=== PATIENT | male | born 1945 | race Caucasian/White ===

== ENCOUNTER 2019-05-15 08:06 | Inpatient (IN) | payer OTHER ==
[2019-05-15] MEDS ORDERED: Heparin 25,000 units/D5W 0 ML ONE (08:27)
[2019-05-15] MEDS ORDERED: Heparin 1,000 UNITS/ML VIAL ONE ×2 (08:27→08:32)
--- NOTE | 2019-05-15 08:28 | RAD ---
Chest one view HISTORY: Chest pain. FINDINGS: No comparison. Cardiac silhouette is magnified by projection. Pulmonary vasculature is slig htly engorged but with mild reticulonodular interstitial prominence. Patient is rotated rightward mild patchy bibasilar infiltrate.. No lobar consolidation or evidence of pneumothorax. IMPRESSION: Mild pulmonary vascular congestion.
[2019-05-15 08:36] LABS: #Basophils 0.1 thou/uL (0.0-0.2); #Eosinphils 0.5 thou/uL (0.0-0.7); #Lymphocytes 1.6 thou/uL (1.20-3.40); #Monocytes 0.6 thou/uL (0.11-0.59); #Neutrophils 3.8 thou/uL (1.40-6.50); %Eosinophils 7.7 % (0.0-10.0); %Monocytes 9.1 % (0.0-10.0); %Neutrophils 58.2 % (42.0-75.0); Hemoglobin 14.3 g/dL (14.0-18.0); INR-International Normal Ratio 1.1; Mean Corpuscular Hemoglobin 32.4 pg (27.0-31.0); Mean Corpuscular Volume 98.1 fL (78.0-98.0); Mean Platelet Volume 8.7 fL (7.4-10.4); PTT 30.2 SEC (22.9-36.1); Platelet Count 109 thou/uL (130-400); Prothrombin Time 14.1 SEC (12.0-14.7); RBC Distribution Width 11.6 % (11.5-14.5); Red Blood Cell (RBC) Count 4.42 mill/uL (4.70-6.10); White Blood Cell (WBC) Count 6.5 thou/uL (4.8-10.8)
[2019-05-15 08:49] LABS: Platelet Morphology Comment Appears Decreased; RBC Morphology Normal
[2019-05-15 08:50] LABS: ALT (SGPT) 66 U/L (8-55); AST (SGOT) 49 U/L (5-34); Albumin 3.5 g/dL (3.4-4.8); Alkaline Phosphatase 99 U/L (40-150); Anion Gap 12 mmol/L (10-20); BUN (Urea Nitrogen) 12 mg/dL (8.4-25.7); Bilirubin, Total 0.7 mg/dL (0.2-1.2); CK (CPK) 69 U/L (30-200); Calc. Creatinine Clearance 0 mL/min (70-130); Calcium 9.2 mg/dL (7.8-10.44); Carbon Dioxide 23 mmol/L (23-31); Chloride 105 mmol/L (98-107); Estimated GFR-MDRD 86; Globulin 3.4 g/dL (2.4-3.5); Glucose 161 mg/dL (83-110); Lipase 22 U/L (8-78); Potassium 3.7 mmol/L (3.5-5.1); Protein, Total 6.9 g/dL (5.8-8.1); Sodium 136 mmol/L (136-145)
[2019-05-15] MEDS ORDERED: Bivalirudin 250 MG VIAL ONE (09:00)
[2019-05-15] MEDS ORDERED: Heparin 10,000 UNITS/1 ML VIAL ONE (09:00)
[2019-05-15] MEDS ORDERED: DOPamine 400 MG/D5W 250 ML 0 ML ONE (09:04)
[2019-05-15] MEDS ORDERED: Ipratropium Oral Inhaler (200 INHALATIONS) INH PRN (09:37)
[2019-05-15] MEDS ORDERED: Clopidogrel Bisulfate 300 MG TAB ONE (09:39)
[2019-05-15] MEDS ORDERED: Nitroglycerin 0.4 MG TAB (25 Tab Bottle) SL PRN (09:41)
[2019-05-15] MEDS ORDERED: Morphine 2 MG/ML SYRINGE SLOW IVP PRN (09:41)
[2019-05-15 10:28] LABS: Cardiac Risk 3.5 (Less than 4.5)
[2019-05-15] MEDS: Sodium Chloride 0.9% 1,000 ML IV SCH ×2 (10:30→15:15)
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
[2019-05-15] MEDS ORDERED: Dextrose 50% Abboject 50 ML SYRINGE SLOW IVP PRN (12:17)
[2019-05-15] MEDS ORDERED: Dextrose 5% in Water 1,000 ML IV PRN (12:17)
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
[2019-05-15] MEDS ORDERED: Iopamidol 370 76% 100 ML VIAL ONE (13:14)
[2019-05-15 14:39] LABS: CKMB 286.2 ng/mL (0-6.6)
[2019-05-15 14:51] LABS: Troponin I 108.944 ng/mL (< 0.028)
[2019-05-15] MEDS ORDERED: Sodium Chloride 0.9% 1,000 ML IV SCH (15:11)
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
[2019-05-15] MEDS ORDERED: Furosemide 40 MG TAB PO SCH (18:15)
[2019-05-15] MEDS: Furosemide 40 MG TAB PO SCH (18:40)
[2019-05-15] MEDS: Carvedilol 25 MG TAB PO SCH (18:43)
[2019-05-15] MEDS: Mometasone 100 MCG HFA INHALER INH SCH (20:19)
[2019-05-15] MEDS: Terazosin HCl 5 MG CAP PO SCH (21:24)
[2019-05-15] MEDS: Pravastatin Sodium 40 MG TAB PO SCH (21:24)
[2019-05-15] MEDS: HumaLOG 300 UNITS/3 ML VIAL SC PRN (21:34)
[2019-05-15 21:50] LABS: CKMB 273.5 ng/mL (0-6.6); Critical Call CKMB RESULT DECREASING
[2019-05-15] MEDS: Acetaminophen 325 MG TAB PO PRN (23:05)
[2019-05-16] MEDS ORDERED: Atropine Sulfate 1 mg/10 ml Syringe ONE (00:04)
[2019-05-16 03:35] LABS: #Basophils 0.1 thou/uL (0.0-0.2); #Eosinphils 0.3 thou/uL (0.0-0.7); #Lymphocytes 1.6 thou/uL (1.20-3.40); #Monocytes 0.6 thou/uL (0.11-0.59); #Neutrophils 4.5 thou/uL (1.40-6.50); %Basophils 0.8 % (0.0-1.0); %Eosinophils 4.3 % (0.0-10.0); %Lymphocytes 22.7 % (21.0-51.0); %Neutrophils 64.2 % (42.0-75.0); Hemoglobin 13.7 g/dL (14.0-18.0); Mean Corpuscular HGB CONC 33.7 g/dL (32.0-36.0); Mean Corpuscular Hemoglobin 33.3 pg (27.0-31.0); Mean Corpuscular Volume 98.7 fL (78.0-98.0); Mean Platelet Volume 8.8 fL (7.4-10.4); Platelet Count 91 thou/uL (130-400); RBC Distribution Width 11.8 % (11.5-14.5); Red Blood Cell (RBC) Count 4.11 mill/uL (4.70-6.10)
[2019-05-16 03:50] LABS: ALT (SGPT) 91 U/L (8-55); AST (SGOT) 207 U/L (5-34); Albumin 3.1 g/dL (3.4-4.8); Alkaline Phosphatase 91 U/L (40-150); Anion Gap 14 mmol/L (10-20); BUN (Urea Nitrogen) 10 mg/dL (8.4-25.7); Bilirubin, Total 0.7 mg/dL (0.2-1.2); Calc. Creatinine Clearance 122 mL/min (70-130); Calcium 8.4 mg/dL (7.8-10.44); Carbon Dioxide 19 mmol/L (23-31); Chloride 107 mmol/L (98-107); Estimated GFR-MDRD Greater than 90; Globulin 2.8 g/dL (2.4-3.5); Glucose 83 mg/dL (83-110); Potassium 3.6 mmol/L (3.5-5.1); Protein, Total 5.9 g/dL (5.8-8.1); Sodium 136 mmol/L (136-145)
[2019-05-16 04:17] LABS: Critical Call Chem Troponin I RESULT DECREASING
[2019-05-16 04:36] LABS: CKMB 173.2 ng/mL (0-6.6); Critical Call CKMB RESULT DECREASING
[2019-05-16] MEDS: Levothyroxine 150 MCG TAB PO SCH (06:19)
[2019-05-16] MEDS: Mometasone 100 MCG HFA INHALER INH SCH ×2 (06:42→18:25)
[2019-05-16] MEDS ORDERED: Potassium Chloride 20 MEQ TAB PO SCH (09:00)
[2019-05-16] MEDS: Carvedilol 25 MG TAB PO SCH ×2 (09:42→17:28)
[2019-05-16] MEDS: Clopidogrel Bisulfate 75 MG TAB PO SCH (09:42)
[2019-05-16] MEDS: Furosemide 40 MG TAB PO SCH ×2 (09:42→15:25)
[2019-05-16] MEDS: Aspirin Chewable 81 MG TAB PO SCH (09:42)
--- NOTE | 2019-05-16 10:57 | PRG ---
DATE OF SERVICE: 05/16/2019 SERVICE: Pulmonary Medicine. INTERVAL HISTORY: The patient is doing really well from respiratory standpoint. He is breathing comfortably. He has no complaints of chest pain, fevers, or chills. Overnight, he had a couple of brief runs of ventricular tachycardia, which were short-lived. He was asymptomatic to them. That becoming much less frequent. PHYSICAL EXAMINATION: VITAL SIGNS: Afebrile, pulse 72, blood pressure 118/79, respirations 15, and saturation 97% on room air. GENERAL: The patient is awake and alert, in no apparent distress. LUNGS: Very good air entry. There is a prolonged expiratory phase. No wheezing is present today. HEART: Normal rate, regular. ABDOMEN: Soft, nontender, and nondistended. Bowel sounds are positive. MUSCULOSKELETAL: No cyanosis or clubbing. No pitting in the bilateral lower extremities. NEUROLOGIC: Grossly nonfocal. LABORATORY DATA: WBC 7.0, hemoglobin 13.7, and platelets 91,000. Troponin is downtrending to 144. BNP 822. Basic metabolic profile is otherwise unremarkable. AST and ALT are gently up-trending. ASSESSMENT: 1. Acute ST-elevation myocardial infarction, status post percutaneous coronary intervention to left anterior descending with a drug-eluting stent. 2. Chronic obstructive pulmonary disease without current exacerbation. 3. Nonsustained ventricular tachycardia, immediately following revascularization. DISCUSSION AND PLAN: The patient is doing fine from respiratory standpoint. At this point, he is stable for transition out of the ICU to the telemetry unit. When he arrives there, he will have no further requirements for inpatient Pulmonary/Critical Care opinion, and I will sign off. Please call with additional questions or concerns through time. I will provide him one dose of Lasix today. Job ID: [id number]
[2019-05-16] MEDS: Lisinopril 2.5 MG TAB PO SCH ×2 (11:04→22:00)
[2019-05-16] MEDS: HumaLOG 300 UNITS/3 ML VIAL SC PRN (11:09)
--- NOTE | 2019-05-16 11:20 | EKG ---
Test Reason : CP Blood Pressure : / mmHG Vent. Rate : 060 BPM Atrial Rate : 060 BPM P-R Int : 164 ms QRS Dur : 084 ms QT Int : 432 ms P-R-T Axes : 066 -06 -03 degrees QTc Int : 432 ms Normal sinus rhythm Anterior infarct , possibly acute * ACUTE [place] * Abnormal ECG Confirmed by LETTY JONES DO ([id number]), slot editor FREDERIC WILLIAM ([id number]) on 05/16/2019 11:20:30 AM Referred By: ROBERT Confirmed By:LETTY JONES DO
--- NOTE | 2019-05-16 14:41 | PDOC.PN ---
- Subjective Encounter Start Date: 05/16/19 Encounter Start Time: 13:45 Subjective: no sob or chest pain -: feels good, is eating well - Objective MAR Reviewed: Yes Vital Signs & Weight: Vital Signs (12 hours) Temp Pulse Pulse Pulse Resp BP BP 05/16/19 11:42 87 88 116/65 05/16/19 11:04 69 119/89 05/16/19 08:00 05/16/19 06:40 69 20 05/16/19 04:00 97.8 F BP Pulse Ox Pulse Ox Pulse Ox 05/16/19 11:42 148/82 H 96 96 05/16/19 11:04 05/16/19 08:00 95 05/16/19 06:40 94 L 05/16/19 04:00 Weight Admit Weight 203 lb Weight 203 lb 14.841 oz Most Recent Monitor Data Heart Rate from ECG 81 NIBP 104/70 NIBP BP-Mean 81 Respiration from ECG 16 SpO2 96 I&O: 05/15/19 05/16/19 05/17/19 06:59 06:59 06:59 Intake Total 1797 600 Output Total 1875 100 Balance -78 500 Result Diagrams: 05/16/19 03:22 05/16/19 03:22 Additional Labs: Accuchecks 05/15/19 05/15/19 21:28 17:10 POC Glucose 199 H 156 H Phys Exam - Physical Examination HEENT: PERRLA, moist MMs Neck: no JVD, supple Respiratory: no wheezing, no rales Cardiovascular: RRR, no significant murmur Gastrointestinal: soft, non-tender, positive bowel sounds Musculoskeletal: no edema, pulses present Neurological: non-focal, moves all 4 limbs Psychiatric: normal affect, A&O x 3 Dx/Plan (1) Acute [place], anterior wall Code(s): I21.09 - STEMI INVOLVING OTH CORONARY ARTERY OF ANTERIOR WALL Status : Acute Comment: s/p stent to prox/mid LAD 05/15/19 (2) CAD (coronary artery disease) Code(s): I25.10 - ATHSCL HEART DISEASE OF [place] CORONARY ARTERY W/O ANG PCTRS Status: Acute Qualifiers: Coronary Disease-Associated Artery/Lesion type: [place] artery [place] vs. transplanted heart: [place] heart Associated angina: without angina Qualified Code(s): I25.10 - Atherosclerotic heart disease of [place] coronary artery without angina pectoris (3) COPD (chronic obstructive pulmonary disease) Status: Chronic Qualifiers: COPD type: unspecified COPD Qualified Code(s): J44.9 - Chronic obstructive pulmonary disease, unspecified (4) HTN (hypertension) Code(s): I10 - ESSENTIAL (PRIMARY) HYPERTENSION Status: Chronic Qualifiers: Hypertension type: essential hypertension Qualified Code(s): I10 - Essential (primary) hypertension (5) Dyslipidemia Code(s): E78.5 - HYPERLIPIDEMIA, UNSPECIFIED Status: Chronic (6) Hypothyroidism Code(s): E03.9 - HYPOTHYROIDISM, UNSPECIFIED Status: Chronic Qualifiers: Hypothyroidism type: unspecified Qualified Code(s): E03.9 - Hypothyroidism , unspecified (7) H/O prostate cancer Code(s): Z85.46 - PERSONAL HISTORY OF MALIGNANT NEOPLASM OF PROSTATE Status: Chronic - Plan hemostable -: on asp, plavix, pravachol, coreg, lasix, lisinopril, synthroid, hytrin -: tx to tele -: likely dc plan in am to senior care if ok with cardio -: to amb in room as tolerated * . Review of Systems - Medications/Allergies Allergies/Adverse Reactions: Allergies Allergy/AdvReac Type Severity Reaction Status Date / Time minoxidil Allergy Verified 05/15/19 12:01 Medications: Current Medications Acetaminophen (Tylenol) 650 mg PO Q6H PRN PRN Reason: .HEADACHE Last Admin: 05/15/19 23:05 Dose: 650 mg Albuterol/Ipratropium (Duoneb) 3 ml NEB [id number] SCH Last Admin: 05/16/19 13:15 Dose: Not Given Albuterol/Ipratropium (Duoneb) 3 ml NEB Q6H PRN PRN Reason: SOB &/or Wheezing Aspirin (Aspirin Chewable) 81 mg PO DAILY [facility] Last Admin: 05/16/19 09:42 Dose: 81 mg Carvedilol (Coreg) 25 mg PO BID-[facility] Last Admin: 05/16/19 09:42 Dose: 25 mg Clopidogrel Bisulfate (Plavix) 75 mg PO DAILY [facility] Last Admin: 05/16/19 09:42 Dose: 75 mg Dextrose/Water (Dextrose 50%) 25 gm SLOW IVP PRN PRN PRN Reason: Hypoglycemia Furosemide (Lasix) 40 mg PO 0900,1400 [facility] Last Admin: 05/16/19 09:42 Dose: 40 mg Glucagon (Glucagon) 1 mg IM PRN PRN PRN Reason: Hypoglycemia Dextrose/Water (D5w) 1,000 mls @ 0 mls/hr IV .Q0M PRN PRN Reason: Hypoglycemia Insulin Human Lispro (Humalog) 0 units SC .MILD SLIDING SCALE PRN PRN Reason: Mild Correctional Scale Last Admin: 05/16/19 11:09 Dose: 2 unit Levothyroxine Sodium (Synthroid) 150 mcg PO 0600 [facility] Last Admin: 05/16/19 06:19 Dose: 150 mcg Lisinopril (Zestril) 2.5 mg PO BID [facility] Last Admin: 05/16/19 11:04 Dose: 2.5 mg Mometasone Furoate (Asmanex Hfa 100 Mcg) 1 puff INH BID-RT [facility] Last Admin: 05/16/19 06:42 Dose: 1 puff Morphine Sulfate (Morphine) 2 mg SLOW IVP Q4H PRN PRN Reason: Moderate Chest Pain (4-6) Last Admin: 05/16/19 04:30 Dose: 2 mg Nitroglycerin (Nitrostat) 0.4 mg SL Q5MIN PRN PRN Reason: Chest Pain Potassium Chloride (K-Dur) 20 meq PO QAM-[facility] Pravastatin Sodium (Pravachol) 40 mg PO HS [facility] Last Admin: 05/15/19 21:24 Dose: Not Given Terazosin HCl (Hytrin) 5 mg PO HS [facility] Last Admin: 05/15/19 21:24 Dose: 5 mg
[2019-05-16] MEDS: Acetaminophen 325 MG TAB PO PRN ×2 (15:28→21:27)
[2019-05-16] MEDS: Terazosin HCl 5 MG CAP PO SCH (21:19)
[2019-05-16] MEDS: Pravastatin Sodium 40 MG TAB PO SCH (21:19)
[2019-05-17 04:55] LABS: #Eosinphils 0.4 thou/uL (0.0-0.7); #Lymphocytes 1.9 thou/uL (1.20-3.40); #Monocytes 0.6 thou/uL (0.11-0.59); %Basophils 0.4 % (0.0-1.0); %Eosinophils 5.9 % (0.0-10.0); %Lymphocytes 27.4 % (21.0-51.0); %Monocytes 8.2 % (0.0-10.0); %Neutrophils 58.1 % (42.0-75.0); Hemoglobin 13.1 g/dL (14.0-18.0); Mean Corpuscular HGB CONC 33.6 g/dL (32.0-36.0); Mean Corpuscular Hemoglobin 32.9 pg (27.0-31.0); Mean Corpuscular Volume 97.7 fL (78.0-98.0); Mean Platelet Volume 8.7 fL (7.4-10.4); Platelet Count 98 thou/uL (130-400); RBC Distribution Width 11.7 % (11.5-14.5); Red Blood Cell (RBC) Count 3.97 mill/uL (4.70-6.10)
[2019-05-17 05:05] LABS: Anion Gap 12 mmol/L (10-20); BUN (Urea Nitrogen) 14 mg/dL (8.4-25.7); Calc. Creatinine Clearance 106 mL/min (70-130); Calcium 8.7 mg/dL (7.8-10.44); Carbon Dioxide 26 mmol/L (23-31); Chloride 104 mmol/L (98-107); Estimated GFR-MDRD Greater than 90; Glucose 111 mg/dL (83-110); Potassium 3.8 mmol/L (3.5-5.1); Sodium 138 mmol/L (136-145)
[2019-05-17] MEDS: Levothyroxine 150 MCG TAB PO SCH (05:18)
[2019-05-17] MEDS: Mometasone 100 MCG HFA INHALER INH SCH ×2 (06:40→19:18)
[2019-05-17] MEDS: Aspirin Chewable 81 MG TAB PO SCH (08:43)
[2019-05-17] MEDS: Carvedilol 25 MG TAB PO SCH ×2 (08:43→17:19)
[2019-05-17] MEDS: Clopidogrel Bisulfate 75 MG TAB PO SCH (08:43)
[2019-05-17] MEDS: Acetaminophen 325 MG TAB PO PRN ×2 (08:43→18:01)
[2019-05-17] MEDS: Furosemide 40 MG TAB PO SCH ×2 (08:43→14:21)
[2019-05-17] MEDS: Potassium Chloride 20 MEQ TAB PO SCH (08:44)
[2019-05-17] MEDS: Lisinopril 2.5 MG TAB PO SCH (08:44)
[2019-05-17] MEDS ORDERED: Amiodarone 450 MG in Dextrose 5% in Water 250 ML IVPB SCH (09:00)
[2019-05-17] MEDS ORDERED: Amiodarone 150 MG, Admixture Fee 1 EACH in Dextrose 5% in Water 100 ML IVPB SCH (09:15)
[2019-05-17] MEDS: HumaLOG 300 UNITS/3 ML VIAL SC PRN (11:56)
--- NOTE | 2019-05-17 12:43 | PDOC.PN ---
- Subjective Encounter Start Date: 05/17/19 Encounter Start Time: 10:30 Subjective: no chest pain or palp -: has mild sob this am and was found to have afib with rvr - Objective MAR Reviewed: Yes Vital Signs & Weight: Vital Signs (12 hours) Temp Pulse Resp BP BP Pulse Ox 05/17/19 12:06 96 16 95 05/17/19 07:05 98.2 F 85 18 157/83 H 98 05/17/19 06:46 75 20 98 05/17/19 06:40 84 16 93 L 05/17/19 03:25 99.7 F H 75 16 129/59 L 92 L 05/17/19 01:30 72 20 Weight Admit Weight 203 lb Weight 212 lb 4.882 oz Most Recent Monitor Data Heart Rate from ECG 71 NIBP 112/69 NIBP BP-Mean 83 Respiration from ECG 19 SpO2 95 I&O: 05/16/19 05/17/19 05/18/19 06:59 06:59 06:59 Intake Total 1797 2000 Output Total 1875 1200 Balance -78 800 Result Diagrams: 05/17/19 04:21 05/17/19 04:22 Additional Labs: Accuchecks 05/17/19 05/17/19 05/16/19 10:47 05:18 20:30 POC Glucose 166 H 105 148 H 05/16/19 05/16/19 05/16/19 17:17 11:10 06:12 POC Glucose 131 H 172 H 98 Phys Exam - Physical Examination HEENT: PERRLA, moist MMs Neck: no JVD, supple Respiratory: no wheezing, no rales Cardiovascular: no significant murmur, irregular Gastrointestinal: soft, non-tender, no distention, positive bowel sounds Musculoskeletal: no edema, pulses present Neurological: non-focal, moves all 4 limbs Psychiatric: normal affect, A&O x 3 Dx/Plan (1) New onset a-fib Code(s): I48.91 - UNSPECIFIED ATRIAL FIBRILLATION Status: Acute (2) Acute [place], anterior wall Code(s): I21.09 - STEMI INVOLVING OTH CORONARY ARTERY OF ANTERIOR WALL Status : Acute Comment: s/p stent to prox/mid LAD 05/15/19 (3) CAD (coronary artery disease) Code(s): I25.10 - ATHSCL HEART DISEASE OF [place] CORONARY ARTERY W/O ANG PCTRS Status: Acute Qualifiers: Coronary Disease-Associated Artery/Lesion type: [place] artery [place] vs. transplanted heart: [place] heart Associated angina: without angina Qualified Code(s): I25.10 - Atherosclerotic heart disease of [place] coronary artery without angina pectoris (4) COPD (chronic obstructive pulmonary disease) Status: Chronic Qualifiers: COPD type: unspecified COPD Qualified Code(s): J44.9 - Chronic obstructive pulmonary disease, unspecified (5) HTN (hypertension) Code(s): I10 - ESSENTIAL (PRIMARY) HYPERTENSION Status: Chronic Qualifiers: Hypertension type: essential hypertension Qualified Code(s): I10 - Essential (primary) hypertension (6) Dyslipidemia Code(s): E78.5 - HYPERLIPIDEMIA, UNSPECIFIED Status: Chronic (7) Hypothyroidism Code(s): E03.9 - HYPOTHYROIDISM, UNSPECIFIED Status: Chronic Qualifiers: Hypothyroidism type: unspecified Qualified Code(s): E03.9 - Hypothyroidism , unspecified (8) H/O prostate cancer Code(s): Z85.46 - PERSONAL HISTORY OF MALIGNANT NEOPLASM OF PROSTATE Status: Chronic - Plan has been started on amiodarone drip -: await echo results -: continue asp, plavix, coreg, lisinopril, lasix bid and pravachol -: hemostable * . Review of Systems - Medications/Allergies Allergies/Adverse Reactions: Allergies Allergy/AdvReac Type Severity Reaction Status Date / Time minoxidil Allergy Verified 05/15/19 12:01 Medications: Current Medications Acetaminophen (Tylenol) 650 mg PO Q6H PRN PRN Reason: .HEADACHE Last Admin: 05/17/19 08:43 Dose: 650 mg Albuterol/Ipratropium (Duoneb) 3 ml NEB [id number] SCH Last Admin: 05/17/19 12:06 Dose: 3 ml Albuterol/Ipratropium (Duoneb) 3 ml NEB Q6H PRN PRN Reason: SOB &/or Wheezing Aspirin (Aspirin Chewable) 81 mg PO DAILY [facility] Last Admin: 05/17/19 08:43 Dose: 81 mg Carvedilol (Coreg) 25 mg PO BID-[facility] Last Admin: 05/17/19 08:43 Dose: 25 mg Clopidogrel Bisulfate (Plavix) 75 mg PO DAILY [facility] Last Admin: 05/17/19 08:43 Dose: 75 mg Dextrose/Water (Dextrose 50%) 25 gm SLOW IVP PRN PRN PRN Reason: Hypoglycemia Furosemide (Lasix) 40 mg PO 0900,1400 [facility] Last Admin: 05/17/19 08:43 Dose: 40 mg Glucagon (Glucagon) 1 mg IM PRN PRN PRN Reason: Hypoglycemia Dextrose/Water (D5w) 1,000 mls @ 0 mls/hr IV .Q0M PRN PRN Reason: Hypoglycemia Amiodarone HCl 450 mg/ (Dextrose/Water) 259 mls @ 0 mls/hr IVPB INF AUGUSOT; Protocol Last Admin: 05/17/19 09:36 Dose: 259 mls Insulin Human Lispro (Humalog) 0 units SC .MILD SLIDING SCALE PRN PRN Reason: Mild Correctional Scale Last Admin: 05/17/19 11:56 Dose: 2 unit Levothyroxine Sodium (Synthroid) 150 mcg PO 0600 [facility] Last Admin: 05/17/19 05:18 Dose: 150 mcg Lisinopril (Zestril) 2.5 mg PO BID [facility] Last Admin: 05/17/19 08:44 Dose: 2.5 mg Mometasone Furoate (Asmanex Hfa 100 Mcg) 1 puff INH BID-RT [facility] Last Admin: 05/17/19 06:40 Dose: 1 puff Morphine Sulfate (Morphine) 2 mg SLOW IVP Q4H PRN PRN Reason: Moderate Chest Pain (4-6) Last Admin: 05/16/19 04:30 Dose: 2 mg Nitroglycerin (Nitrostat) 0.4 mg SL Q5MIN PRN PRN Reason: Chest Pain Potassium Chloride (K-Dur) 20 meq PO QAM-WM [facility] Last Admin: 05/17/19 08:44 Dose: 20 meq Pravastatin Sodium (Pravachol) 40 mg PO HS [facility] Last Admin: 05/16/19 21:19 Dose: 40 mg Terazosin HCl (Hytrin) 5 mg PO HS [facility] Last Admin: 05/16/19 21:19 Dose: 5 mg
[2019-05-17] MEDS: Terazosin HCl 5 MG CAP PO SCH (20:48)
[2019-05-17] MEDS: Pravastatin Sodium 40 MG TAB PO SCH (20:48)
[2019-05-17] MEDS: Lisinopril 10 MG TAB PO SCH (20:49)
[2019-05-17] MEDS: Amiodarone 200 MG TAB PO SCH (20:51)
[2019-05-17] MEDS ORDERED: Artificial Tear Sol 15 ML BOT EA EYE PRN (20:58)
[2019-05-18] MEDS: Levothyroxine 150 MCG TAB PO SCH (03:53)
[2019-05-18] MEDS: Acetaminophen 325 MG TAB PO PRN ×2 (03:53→19:05)
[2019-05-18] MEDS: Mometasone 100 MCG HFA INHALER INH SCH ×2 (07:27→19:31)
[2019-05-18 07:37] LABS: #Basophils 0.1 thou/uL (0.0-0.2); #Eosinphils 0.4 thou/uL (0.0-0.7); #Lymphocytes 2.2 thou/uL (1.20-3.40); #Monocytes 0.8 thou/uL (0.11-0.59); #Neutrophils 5.1 thou/uL (1.40-6.50); %Basophils 0.8 % (0.0-1.0); %Eosinophils 5.3 % (0.0-10.0); %Lymphocytes 25.4 % (21.0-51.0); %Neutrophils 59.5 % (42.0-75.0); Hemoglobin 13.1 g/dL (14.0-18.0); Mean Corpuscular HGB CONC 32.3 g/dL (32.0-36.0); Mean Corpuscular Hemoglobin 31.4 pg (27.0-31.0); Mean Platelet Volume 8.6 fL (7.4-10.4); Platelet Count 114 thou/uL (130-400); RBC Distribution Width 11.7 % (11.5-14.5); Red Blood Cell (RBC) Count 4.17 mill/uL (4.70-6.10); White Blood Cell (WBC) Count 8.5 thou/uL (4.8-10.8)
[2019-05-18 07:38] LABS: INR-International Normal Ratio 1.1; PTT 29.3 SEC (22.9-36.1); Prothrombin Time 14.1 SEC (12.0-14.7)
[2019-05-18 07:51] LABS: Anion Gap 12 mmol/L (10-20); BUN (Urea Nitrogen) 21 mg/dL (8.4-25.7); Calc. Creatinine Clearance 99 mL/min (70-130); Calcium 9.2 mg/dL (7.8-10.44); Carbon Dioxide 26 mmol/L (23-31); Chloride 104 mmol/L (98-107); Estimated GFR-MDRD 85; Glucose 114 mg/dL (83-110); Potassium 3.9 mmol/L (3.5-5.1); Sodium 138 mmol/L (136-145)
[2019-05-18] MEDS: Amiodarone 200 MG TAB PO SCH ×2 (09:13→21:44)
[2019-05-18] MEDS: Furosemide 40 MG TAB PO SCH ×2 (09:14→13:55)
[2019-05-18] MEDS: Lisinopril 10 MG TAB PO SCH ×2 (09:14→21:45)
[2019-05-18] MEDS: Aspirin Chewable 81 MG TAB PO SCH (09:14)
[2019-05-18] MEDS: Potassium Chloride 20 MEQ TAB PO SCH (09:14)
[2019-05-18] MEDS: Carvedilol 25 MG TAB PO SCH ×2 (09:14→16:40)
[2019-05-18] MEDS: Clopidogrel Bisulfate 75 MG TAB PO SCH (09:14)
--- NOTE | 2019-05-18 10:42 | PQF ---
CLINICAL DOCUMENTATION IMPROVEMENT CLARIFICATION FORM: ICD-10 Updated PLEASE DO AN ADDENDUM TO THE PROGRESS NOTE WITH ANY DOCUMENTATION UPDATES OR ADDITIONS AND CARRY THROUGH TO DC SUMMARY. THANK YOU. DATE: 05/18/19 ATTN: DR. ZIMMERMAN Please exercise your independent, professional judgment in responding to the clarification form. Clinical indicators are provided on the bottom of this form for your review Please check appropriate box(s): HEART FAILURE: A. TYPE: [ x ] Systolic / HFrEF [ ] Diastolic / HFpEF [ ] Combined Systolic / Diastolic B. ACUITY [ x ] Acute [ ] Acute on Chronic [ ] Chronic [ ] Other diagnosis [ ] Unable to determine In addition, please specify: Present on Admission (POA): [ x ] Yes [ ] No [ ] Unable to determine For continuity of documentation, please document condition throughout progress notes and discharge summary. Thank You. 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 All Rights Reserved SONG [email or web address] Office: [phone] TANESHA
[2019-05-18] MEDS: HumaLOG 300 UNITS/3 ML VIAL SC PRN (11:24)
--- NOTE | 2019-05-18 12:15 | PDOC.PN ---
- Subjective Encounter Start Date: 05/18/19 Encounter Start Time: 10:30 Subjective: no sob, feels better -: no chest pain or palp - Objective MAR Reviewed: Yes Vital Signs & Weight: Vital Signs (12 hours) Temp Pulse Pulse Pulse Resp BP BP 05/18/19 11:19 98.5 F 66 17 05/18/19 09:14 138/83 05/18/19 08:58 86 91 140/71 05/18/19 07:33 99.0 F 71 18 05/18/19 07:27 70 16 05/18/19 03:15 98.4 F 73 22 H BP BP BP Pulse Ox Pulse Ox Pulse Ox 05/18/19 11:19 117/63 93 L 05/18/19 09:14 05/18/19 08:58 136/75 94 L 97 05/18/19 07:33 122/61 95 05/18/19 07:27 05/18/19 03:15 114/53 L 93 L Weight Admit Weight 203 lb Weight 210 lb 5.136 oz Most Recent Monitor Data Heart Rate from ECG 71 NIBP 112/69 NIBP BP-Mean 83 Respiration from ECG 19 SpO2 95 I&O: 05/17/19 05/18/19 05/19/19 06:59 06:59 06:59 Intake Total 1999 1883.4 Output Total 1200 1650 Balance 800 233.4 Result Diagrams: 05/18/19 07:20 05/18/19 07:20 Additional Labs: Accuchecks 05/18/19 05/18/19 05/17/19 11:10 05:07 20:12 POC Glucose 173 H 121 H 129 H 05/17/19 17:13 POC Glucose 125 H Phys Exam - Physical Examination HEENT: PERRLA, moist MMs Neck: no JVD, supple Respiratory: no wheezing, no rales Cardiovascular: RRR, no significant murmur Gastrointestinal: soft, non-tender, positive bowel sounds Musculoskeletal: no edema, pulses present Neurological: non-focal, moves all 4 limbs Psychiatric: normal affect, A&O x 3 Dx/Plan (1) New onset a-fib Code(s): I48.91 - UNSPECIFIED ATRIAL FIBRILLATION Status: Acute Comment: in sinus now (2) Acute [place], anterior wall Code(s): I21.09 - STEMI INVOLVING [facility] CORONARY ARTERY OF ANTERIOR WALL Status : Acute Comment: s/p stent to prox/mid LAD 05/15/19 (3) CAD (coronary artery disease) Code(s): I25.10 - ATHSCL HEART DISEASE OF [place] CORONARY ARTERY W/O ANG PCTRS Status: Acute Qualifiers: Coronary Disease-Associated Artery/Lesion type: [place] artery [place] vs. transplanted heart: [place] heart Associated angina: without angina Qualified Code(s): I25.10 - Atherosclerotic heart disease of [place] coronary artery without angina pectoris (4) COPD (chronic obstructive pulmonary disease) Status: Chronic Qualifiers: COPD type: unspecified COPD Qualified Code(s): J44.9 - Chronic obstructive pulmonary disease, unspecified (5) HTN (hypertension) Code(s): I10 - ESSENTIAL (PRIMARY) HYPERTENSION Status: Chronic Qualifiers: Hypertension type: essential hypertension Qualified Code(s): I10 - Essential (primary) hypertension (6) Dyslipidemia Code(s): E78.5 - HYPERLIPIDEMIA, UNSPECIFIED Status: Chronic (7) Hypothyroidism Code(s): E03.9 - HYPOTHYROIDISM, UNSPECIFIED Status: Chronic Qualifiers: Hypothyroidism type: unspecified Qualified Code(s): E03.9 - Hypothyroidism , unspecified (8) H/O prostate cancer Code(s): Z85.46 - PERSONAL HISTORY OF MALIGNANT NEOPLASM OF PROSTATE Status: Chronic (9) Acute exacerbation of CHF (congestive heart failure) Code(s): I50.9 - HEART FAILURE, UNSPECIFIED Status: Acute Qualifiers: Heart failure type: systolic Qualified Code(s): I50.23 - Acute on chronic systolic (congestive) heart failure Comment: ef of 20%, class C - Plan hemostable -: is on oral amiodarone -: life vest per cardio adv -: continue asp, plavix, pravachol, coreg, lisinopril, lasix, synthroid, hytri -: dc plan per cardiology adv, pt to amb as tolerated in hallway * . Review of Systems - Medications/Allergies Allergies/Adverse Reactions: Allergies Allergy/AdvReac Type Severity Reaction Status Date / Time minoxidil Allergy Verified 05/15/19 12:01 Medications: Current Medications Acetaminophen (Tylenol) 650 mg PO Q6H PRN PRN Reason: .HEADACHE Last Admin: 05/18/19 03:53 Dose: 650 mg Albuterol/Ipratropium (Duoneb) 3 ml NEB [id number] Last Admin: 05/18/19 07:27 Dose: 3 ml Albuterol/Ipratropium (Duoneb) 3 ml NEB Q6H PRN PRN Reason: SOB &/or Wheezing Amiodarone HCl (Cordarone) 400 mg PO BID [facility] Last Admin: 05/18/19 09:13 Dose: 400 mg Artificial Tears (Liquitears 15ml Bottle) 2 drop EA EYE Q4H PRN PRN Reason: Dry Eyes Last Admin: 05/17/19 22:04 Dose: 2 drop Aspirin (Aspirin Chewable) 81 mg PO DAILY [facility] Last Admin: 05/18/19 09:14 Dose: 81 mg Carvedilol (Coreg) 25 mg PO BID-[facility] Last Admin: 05/18/19 09:14 Dose: 25 mg Clopidogrel Bisulfate (Plavix) 75 mg PO DAILY [facility] Last Admin: 05/18/19 09:14 Dose: 75 mg Dextrose/Water (Dextrose 50%) 25 gm SLOW IVP PRN PRN PRN Reason: Hypoglycemia Furosemide (Lasix) 40 mg PO 0900,1400 [facility] Last Admin: 05/18/19 09:14 Dose: 40 mg Glucagon (Glucagon) 1 mg IM PRN PRN PRN Reason: Hypoglycemia Dextrose/Water (D5w) 1,000 mls @ 0 mls/hr IV .Q0M PRN PRN Reason: Hypoglycemia Insulin Human Lispro (Humalog) 0 units SC .MILD SLIDING SCALE PRN PRN Reason: Mild Correctional Scale Last Admin: 05/18/19 11:24 Dose: 2 unit Levothyroxine Sodium (Synthroid) 150 mcg PO 0600 [facility] Last Admin: 05/18/19 03:53 Dose: 150 mcg Lisinopril (Zestril) 10 mg PO BID [facility] Last Admin: 05/18/19 09:14 Dose: 10 mg Mometasone Furoate (Asmanex Hfa 100 Mcg) 1 puff INH BID-RT [facility] Last Admin: 05/18/19 07:27 Dose: 1 puff Morphine Sulfate (Morphine) 2 mg SLOW IVP Q4H PRN PRN Reason: Moderate Chest Pain (4-6) Last Admin: 05/16/19 04:30 Dose: 2 mg Nitroglycerin (Nitrostat) 0.4 mg SL Q5MIN PRN PRN Reason: Chest Pain Potassium Chloride (K-Dur) 20 meq PO QAM-WM [facility] Last Admin: 05/18/19 09:14 Dose: 20 meq Pravastatin Sodium (Pravachol) 40 mg PO HS [facility] Last Admin: 05/17/19 20:48 Dose: 40 mg Sodium Chloride (Flush - Normal Saline) 10 ml IVF Q12HR [facility] Last Admin: 05/18/19 09:16 Dose: 10 ml Sodium Chloride (Flush - Normal Saline) 10 ml IVF PRN PRN PRN Reason: Saline Flush Terazosin HCl (Hytrin) 5 mg PO HS [facility] Last Admin: 05/17/19 20:48 Dose: 5 mg Warfarin Sodium (Coumadin) 5 mg PO 1700 [facility]
[2019-05-18] MEDS: Warfarin Sodium 5 MG TAB PO SCH (16:41)
[2019-05-18 19:04] LABS: Hemoglobin 12.6 g/dL (14.0-18.0); Platelet Count 113 thou/uL (130-400)
[2019-05-18] MEDS: Terazosin HCl 5 MG CAP PO SCH (21:44)
[2019-05-18] MEDS: Pravastatin Sodium 40 MG TAB PO SCH (21:44)
[2019-05-19] MEDS: Levothyroxine 150 MCG TAB PO SCH (06:19)
[2019-05-19] MEDS: Mometasone 100 MCG HFA INHALER INH SCH ×2 (07:20→18:19)
[2019-05-19 07:27] LABS: INR-International Normal Ratio 1.1; PTT 30.3 SEC (22.9-36.1); Prothrombin Time 14.4 SEC (12.0-14.7)
[2019-05-19] MEDS: Aspirin Chewable 81 MG TAB PO SCH (08:43)
[2019-05-19] MEDS: Clopidogrel Bisulfate 75 MG TAB PO SCH (08:43)
[2019-05-19] MEDS: Amiodarone 200 MG TAB PO SCH ×2 (08:43→20:41)
[2019-05-19] MEDS: Furosemide 40 MG TAB PO SCH ×2 (08:43→14:58)
[2019-05-19] MEDS: Potassium Chloride 20 MEQ TAB PO SCH (08:44)
[2019-05-19] MEDS: Lisinopril 10 MG TAB PO SCH ×2 (08:44→20:40)
[2019-05-19] MEDS: Carvedilol 25 MG TAB PO SCH ×2 (08:44→16:21)
[2019-05-19 09:15] LABS: INR-International Normal Ratio 1.1; Prothrombin Time 14.3 SEC (12.0-14.7)
--- NOTE | 2019-05-19 11:29 | PDOC.PN ---
- Subjective Encounter Start Date: 05/19/19 Encounter Start Time: 09:40 Subjective: no chest pain or sob or palp -: wants to take a shower today - Objective MAR Reviewed: Yes Vital Signs & Weight: Vital Signs (12 hours) Temp Pulse Resp BP Pulse Ox 05/19/19 08:39 99.2 F 85 18 117/69 92 L 05/19/19 07:18 73 20 05/19/19 03:15 98.5 F 62 20 120/53 L 92 L 05/19/19 00:00 98.2 F 62 18 104/61 93 L Weight Admit Weight 203 lb Weight 208 lb 6.4 oz Most Recent Monitor Data Heart Rate from ECG 71 NIBP 112/69 NIBP BP-Mean 83 Respiration from ECG 19 SpO2 95 I&O: 05/18/19 05/19/19 05/20/19 06:59 06:59 06:59 Intake Total 1883.4 970 Output Total 1650 1495 Balance 233.4 -525 Result Diagrams: 05/18/19 18:53 05/18/19 07:20 Additional Labs: Accuchecks 05/19/19 05/19/19 05/18/19 11:02 05:35 20:51 POC Glucose 201 H 119 H 145 H 05/18/19 16:43 POC Glucose 125 H Phys Exam - Physical Examination HEENT: PERRLA, moist MMs Neck: no JVD, supple Respiratory: no wheezing, no rales Cardiovascular: RRR, no significant murmur Gastrointestinal: soft, non-tender, positive bowel sounds Musculoskeletal: no edema, pulses present Neurological: non-focal, moves all 4 limbs Psychiatric: normal affect, A&O x 3 Dx/Plan (1) New onset a-fib Code(s): I48.91 - UNSPECIFIED ATRIAL FIBRILLATION Status: Acute Comment: in sinus now (2) Acute [place], anterior wall Code(s): I21.09 - STEMI INVOLVING OTH CORONARY ARTERY OF ANTERIOR WALL Status : Acute Comment: s/p stent to prox/mid LAD 05/15/19 (3) CAD (coronary artery disease) Code(s): I25.10 - ATHSCL HEART DISEASE OF [place] CORONARY ARTERY W/O ANG PCTRS Status: Acute Qualifiers: Coronary Disease-Associated Artery/Lesion type: [place] artery [place] vs. transplanted heart: [place] heart Associated angina: without angina Qualified Code(s): I25.10 - Atherosclerotic heart disease of [place] coronary artery without angina pectoris (4) COPD (chronic obstructive pulmonary disease) Status: Chronic Qualifiers: COPD type: unspecified COPD Qualified Code(s): J44.9 - Chronic obstructive pulmonary disease, unspecified (5) HTN (hypertension) Code(s): I10 - ESSENTIAL (PRIMARY) HYPERTENSION Status: Chronic Qualifiers: Hypertension type: essential hypertension Qualified Code(s): I10 - Essential (primary) hypertension (6) Dyslipidemia Code(s): E78.5 - HYPERLIPIDEMIA, UNSPECIFIED Status: Chronic (7) Hypothyroidism Code(s): E03.9 - HYPOTHYROIDISM, UNSPECIFIED Status: Chronic Qualifiers: Hypothyroidism type: unspecified Qualified Code(s): E03.9 - Hypothyroidism , unspecified (8) H/O prostate cancer Code(s): Z85.46 - PERSONAL HISTORY OF MALIGNANT NEOPLASM OF PROSTATE Status: Chronic (9) Acute exacerbation of CHF (congestive heart failure) Code(s): I50.9 - HEART FAILURE, UNSPECIFIED Status: Acute Qualifiers: Heart failure type: systolic Qualified Code(s): I50.23 - Acute on chronic systolic (congestive) heart failure Comment: ef of 20%, class C - Plan hemostable -: dc plan per cardio adv -: life vest is being arranged? -: continue coumadin, asp, plavix, pravachol, coreg, lisinopril, lasix -: to amb as tolerated * . Review of Systems - Medications/Allergies Allergies/Adverse Reactions: Allergies Allergy/AdvReac Type Severity Reaction Status Date / Time minoxidil Allergy Verified 05/15/19 12:01 Medications: Current Medications Acetaminophen (Tylenol) 650 mg PO Q6H PRN PRN Reason: .HEADACHE Last Admin: 05/18/19 19:05 Dose: 650 mg Albuterol/Ipratropium (Duoneb) 3 ml NEB [id number] [facility] Last Admin: 05/19/19 07:18 Dose: 3 ml Albuterol/Ipratropium (Duoneb) 3 ml NEB Q6H PRN PRN Reason: SOB &/or Wheezing Amiodarone HCl (Cordarone) 400 mg PO BID [facility] Last Admin: 05/19/19 08:43 Dose: 400 mg Artificial Tears (Liquitears 15ml Bottle) 2 drop EA EYE Q4H PRN PRN Reason: Dry Eyes Last Admin: 05/17/19 22:04 Dose: 2 drop Aspirin (Aspirin Chewable) 81 mg PO DAILY [facility] Last Admin: 05/19/19 08:43 Dose: 81 mg Carvedilol (Coreg) 25 mg PO BID-[facility] Last Admin: 05/19/19 08:44 Dose: 25 mg Clopidogrel Bisulfate (Plavix) 75 mg PO DAILY [facility] Last Admin: 05/19/19 08:43 Dose: 75 mg Dextrose/Water (Dextrose 50%) 25 gm SLOW IVP PRN PRN PRN Reason: Hypoglycemia Furosemide (Lasix) 40 mg PO 0900,1400 [facility] Last Admin: 05/19/19 08:43 Dose: 40 mg Glucagon (Glucagon) 1 mg IM PRN PRN PRN Reason: Hypoglycemia Dextrose/Water (D5w) 1,000 mls @ 0 mls/hr IV .Q0M PRN PRN Reason: Hypoglycemia Insulin Human Lispro (Humalog) 0 units SC .MILD SLIDING SCALE PRN PRN Reason: Mild Correctional Scale Last Admin: 05/18/19 11:24 Dose: 2 unit Levothyroxine Sodium (Synthroid) 150 mcg PO 0600 [facility] Last Admin: 05/19/19 06:19 Dose: 150 mcg Lisinopril (Zestril) 10 mg PO BID [facility] Last Admin: 05/19/19 08:44 Dose: 10 mg Mometasone Furoate (Asmanex Hfa 100 Mcg) 1 puff INH BID-RT [facility] Last Admin: 05/19/19 07:20 Dose: 1 puff Morphine Sulfate (Morphine) 2 mg SLOW IVP Q4H PRN PRN Reason: Moderate Chest Pain (4-6) Last Admin: 05/16/19 04:30 Dose: 2 mg Nitroglycerin (Nitrostat) 0.4 mg SL Q5MIN PRN PRN Reason: Chest Pain Potassium Chloride (K-Dur) 20 meq PO QAM[facility] Last Admin: 05/19/19 08:44 Dose: 20 meq Pravastatin Sodium (Pravachol) 40 mg PO HS [facility] Last Admin: 05/18/19 21:44 Dose: 40 mg Sodium Chloride (Flush - Normal Saline) 10 ml IVF Q12HR [facility] Last Admin: 05/19/19 08:45 Dose: Not Given Sodium Chloride (Flush - Normal Saline) 10 ml IVF PRN PRN PRN Reason: Saline Flush Terazosin HCl (Hytrin) 5 mg PO HS [facility] Last Admin: 05/18/19 21:44 Dose: 5 mg Warfarin Sodium (Coumadin) 5 mg PO 1700 [facility] Last Admin: 05/18/19 16:41 Dose: 5 mg
[2019-05-19 12:28] VITALS: BMI 29.0
[2019-05-19] MEDS: HumaLOG 300 UNITS/3 ML VIAL SC PRN (12:43)
[2019-05-19] MEDS: Acetaminophen 325 MG TAB PO PRN (15:02)
[2019-05-19] MEDS: Warfarin Sodium 5 MG TAB PO SCH (16:20)
[2019-05-19] MEDS: Pravastatin Sodium 40 MG TAB PO SCH (20:40)
[2019-05-19] MEDS: Terazosin HCl 5 MG CAP PO SCH (20:41)
[2019-05-20] MEDS: Acetaminophen 325 MG TAB PO PRN (01:24)
[2019-05-20] MEDS: Levothyroxine 150 MCG TAB PO SCH (05:35)
[2019-05-20] MEDS: Mometasone 100 MCG HFA INHALER INH SCH (07:13)
[2019-05-20] MEDS ORDERED: Furosemide 80 MG TAB PO SCH (07:30)
--- NOTE | 2019-05-20 08:33 | DIS ---
DATE OF ADMISSION: 05/15/2019 DATE OF DISCHARGE: 05/19/2019 DISCHARGE DIAGNOSES: 1. Anterolateral ST-segment elevation myocardial infarction with placement of drug-eluting stent in the proximal LAD-troponin I 122.691, MB 286.2 with early peak in cardiac enzymes. 2. Nonsustained ventricular tachycardia post stent placement. 3. Three-vessel coronary artery disease, status post circumflex and right coronary artery stents at [facility], which continued to show good results. 4. Severe ischemic cardiomyopathy with ejection fraction of 15% to 20%, LifeVest fitted, but patient refused to wear it. 5. Atrial fibrillation with rapid ventricular response, converted to normal sinus rhythm with IV amiodarone. 6. Hypertension. 7. Hypercholesterolemia, under good control. 8. Diabetes. 9. Hypothyroidism. 10. History of prostate cancer status post radiation. DISCHARGE DISPOSITION: The patient be seen in Heart Failure Clinic in 2 weeks. He will need an echo in 40 days at [facility] and consideration will be given to defibrillator placement at that time. I assume that his cardiac care will be provided by [facility] in the future. HOSPITAL COURSE: Mr. Fleming had approximately 1 hour of sharp generalized chest discomfort. He was brought to the emergency room. EKG revealed 1-[address]-segment elevation in V2 through V4 with hyperacute T-waves. The pain was not pleuritic in nature. It was felt best to take him to the laboratory animal caretaker with his history of previous stent placement. He had a 20% left main, totally occluded proximal LAD followed by 95% of the proximal LAD stenosis. There was 90% apical LAD stenosis. The circumflex had proximal to distal stent which was patent. The first obtuse marginal had an 80% lesion and the 3rd obtuse marginal had an 80% lesion. The right coronary had a proximal stent which was patent. There was 60% lesion in the right posterolateral. He underwent placement of Synergy 3.0 x 28 and 3.5 x 32 from the mid to proximal LAD. The 3.5 mm stent was postdilated with a 4-mm balloon. He had improvement in his chest discomfort. His cholesterol was 130, triglycerides 146, HDL 37, LDL 64 on the pravastatin 40. With him being on the previous medications of furosemide 40 b.i.d., lisinopril 40 daily, and carvedilol 25 mg b.i.d., it was felt that in the past he probably had poor left ventricular function and with this additional insult, would have an extremely low ejection fraction. Echocardiogram was performed 3 days after his MS. This revealed ejection fraction of 15% to 20 %. with akinesis of the apex of the septum, moderate left atrial enlargement, moderate mitral regurgitation, and mild tricuspid regurgitation. He also developed atrial fibrillation with fast ventricular response, was placed on IV amiodarone and converted to sinus rhythm. He was then transitioned to p.o. amiodarone. LifeVest was arranged at the time of discharge, but patient refused to wear it. Also, he started to develop at the time of discharge some crackles at the right base and so his a.m. dose of furosemide was increased from 40 to 80 mg q.a.m. and he will continue the q.2 p.m. 40 mg dose. Certainly his long-term prognosis is extremely poor with his severe left ventricular dysfunction. Job ID: [id number] MTDD
[2019-05-20 09:45] LABS: INR-International Normal Ratio 1.2; Prothrombin Time 15.3 SEC (12.0-14.7)
[2019-05-20] MEDS: Aspirin Chewable 81 MG TAB PO SCH (10:29)
[2019-05-20] MEDS: Clopidogrel Bisulfate 75 MG TAB PO SCH (10:29)
[2019-05-20] MEDS: Potassium Chloride 20 MEQ TAB PO SCH (10:29)
[2019-05-20] MEDS: Lisinopril 10 MG TAB PO SCH (10:30)
[2019-05-20] MEDS: Carvedilol 25 MG TAB PO SCH ×2 (10:32→17:11)
[2019-05-20] MEDS: Amiodarone 200 MG TAB PO SCH (10:37)
--- NOTE | 2019-05-20 11:56 | PDOC.PN ---
- Subjective Encounter Start Date: 05/20/19 Encounter Start Time: 08:15 Subjective: says he is not comfortable wearing life vest and wants it removed -: no chest pain or palp -: is sitting in chair, had shower yesterday - Objective MAR Reviewed: Yes Vital Signs & Weight: Vital Signs (12 hours) Temp Pulse Resp BP BP Pulse Ox 05/20/19 10:30 126/74 05/20/19 07:13 84 16 93 L 05/20/19 04:00 98.1 F 72 17 126/71 94 L Weight Admit Weight 198 lb 13.711 oz Weight 208 lb 15.971 oz Most Recent Monitor Data Heart Rate from ECG 71 NIBP 112/69 NIBP BP-Mean 83 Respiration from ECG 19 SpO2 95 I&O: 05/19/19 05/20/19 05/21/19 06:59 06:59 06:59 Intake Total 970 660 Output Total 1495 450 Balance -525 210 Result Diagrams: 05/18/19 18:53 05/18/19 07:20 Additional Labs: Accuchecks 05/20/19 05/20/19 05/19/19 10:35 05:27 20:48 POC Glucose 203 H 121 H 138 H 05/19/19 16:52 POC Glucose 130 H Phys Exam - Physical Examination HEENT: PERRLA, moist MMs Neck: no JVD, supple Respiratory: no wheezing, no rales Cardiovascular: RRR, no significant murmur Gastrointestinal: soft, non-tender, positive bowel sounds Musculoskeletal: no edema, pulses present Neurological: non-focal, moves all 4 limbs Psychiatric: normal affect, A&O x 3 Dx/Plan (1) Acute [place], anterior wall Code(s): I21.09 - STEMI INVOLVING OTH CORONARY ARTERY OF ANTERIOR WALL Status : Acute Comment: s/p stent to prox/mid LAD 05/15/19 (2) CAD (coronary artery disease) Code(s): I25.10 - ATHSCL HEART DISEASE OF [place] CORONARY ARTERY W/O ANG PCTRS Status: Acute Qualifiers: Coronary Disease-Associated Artery/Lesion type: [place] artery [place] vs. transplanted heart: [place] heart Associated angina: without angina Qualified Code(s): I25.10 - Atherosclerotic heart disease of [place] coronary artery without angina pectoris (3) COPD (chronic obstructive pulmonary disease) Status: Chronic Qualifiers: COPD type: unspecified COPD Qualified Code(s): J44.9 - Chronic obstructive pulmonary disease, unspecified (4) HTN (hypertension) Code(s): I10 - ESSENTIAL (PRIMARY) HYPERTENSION Status: Chronic Qualifiers: Hypertension type: essential hypertension Qualified Code(s): I10 - Essential (primary) hypertension (5) Dyslipidemia Code(s): E78.5 - HYPERLIPIDEMIA, UNSPECIFIED Status: Chronic (6) Hypothyroidism Code(s): E03.9 - HYPOTHYROIDISM, UNSPECIFIED Status: Chronic Qualifiers: Hypothyroidism type: unspecified Qualified Code(s): E03.9 - Hypothyroidism , unspecified (7) H/O prostate cancer Code(s): Z85.46 - PERSONAL HISTORY OF MALIGNANT NEOPLASM OF PROSTATE Status: Chronic (8) Acute exacerbation of CHF (congestive heart failure) Code(s): I50.9 - HEART FAILURE, UNSPECIFIED Status: Acute Qualifiers: Heart failure type: systolic Qualified Code(s): I50.23 - Acute on chronic systolic (congestive) heart failure Comment: ef of 20%, class C (9) V-tach Code(s): I47.2 - VENTRICULAR TACHYCARDIA Status: Resolved Comment: following stemi - Plan if his life vest is removed he may go back to his group home -: counselled to wear it, but he is not convinced due to trouble breathing wit -: -h it. Meds are optimized for discharge -: hemostable -: continue amio taper, coreg, lisino, asp, plavix and lasix * . Review of Systems - Medications/Allergies Allergies/Adverse Reactions: Allergies Allergy/AdvReac Type Severity Reaction Status Date / Time minoxidil Allergy Verified 05/15/19 12:01 Medications: Current Medications Acetaminophen (Tylenol) 650 mg PO Q6H PRN PRN Reason: .HEADACHE Last Admin: 05/20/19 01:24 Dose: 650 mg Albuterol/Ipratropium (Duoneb) 3 ml NEB [id number] [facility] Last Admin: 05/20/19 07:13 Dose: 3 ml Albuterol/Ipratropium (Duoneb) 3 ml NEB Q6H PRN PRN Reason: SOB &/or Wheezing Amiodarone HCl (Cordarone) 400 mg PO BID [facility] Last Admin: 05/20/19 10:37 Dose: 400 mg Artificial Tears (Liquitears 15ml Bottle) 2 drop EA EYE Q4H PRN PRN Reason: Dry Eyes Last Admin: 05/17/19 22:04 Dose: 2 drop Aspirin (Aspirin Chewable) 81 mg PO DAILY [facility] Last Admin: 05/20/19 10:29 Dose: 81 mg Carvedilol (Coreg) 25 mg PO BID-[facility] Last Admin: 05/20/19 10:32 Dose: 25 mg Clopidogrel Bisulfate (Plavix) 75 mg PO DAILY [facility] Last Admin: 05/20/19 10:29 Dose: 75 mg Dextrose/Water (Dextrose 50%) 25 gm SLOW IVP PRN PRN PRN Reason: Hypoglycemia Furosemide (Lasix) 80 mg PO DAILY[facility] Last Admin: 05/20/19 10:32 Dose: 80 mg Furosemide (Lasix) 40 mg PO 1400 [facility] Glucagon (Glucagon) 1 mg IM PRN PRN PRN Reason: Hypoglycemia Dextrose/Water (D5w) 1,000 mls @ 0 mls/hr IV .Q0M PRN PRN Reason: Hypoglycemia Insulin Human Lispro (Humalog) 0 units SC .MILD SLIDING SCALE PRN PRN Reason: Mild Correctional Scale Last Admin: 05/19/19 12:43 Dose: 3 unit Levothyroxine Sodium (Synthroid) 150 mcg PO 0600 [facility] Last Admin: 05/20/19 05:35 Dose: 150 mcg Lisinopril (Zestril) 10 mg PO BID [facility] Last Admin: 05/20/19 10:30 Dose: 10 mg Mometasone Furoate (Asmanex Hfa 100 Mcg) 1 puff INH BID-RT [facility] Last Admin: 05/20/19 07:13 Dose: 1 puff Morphine Sulfate (Morphine) 2 mg SLOW IVP Q4H PRN PRN Reason: Moderate Chest Pain (4-6) Last Admin: 05/16/19 04:30 Dose: 2 mg Nitroglycerin (Nitrostat) 0.4 mg SL Q5MIN PRN PRN Reason: Chest Pain Potassium Chloride (K-Dur) 20 meq PO QAM-WM [facility] Last Admin: 05/20/19 10:29 Dose: 20 meq Pravastatin Sodium (Pravachol) 40 mg PO HS [facility] Last Admin: 05/19/19 20:40 Dose: 40 mg Sodium Chloride (Flush - Normal Saline) 10 ml IVF Q12HR [facility] Last Admin: 05/20/19 10:32 Dose: Not Given Sodium Chloride (Flush - Normal Saline) 10 ml IVF PRN PRN PRN Reason: Saline Flush Terazosin HCl (Hytrin) 5 mg PO HS [facility] Last Admin: 05/19/19 20:41 Dose: 5 mg
[2019-05-20] MEDS ORDERED: Furosemide 40 MG TAB PO SCH (14:00)
[2019-05-20 20:00] VITALS: BP 157/75; TEMP 98.2
== END 2019-05-20 17:30 | DRG 246 ==
LOC: ERS 08:06 → CCU 10:31 → 2NO 05-16 20:13
PROVIDERS: ADMIT Internal Medicine Cardiovascular Disease; ATTEND Internal Medicine Cardiovascular Disease
PROC: 027135Z Dilation of Coronary Artery, Two Arteries with Two Drug-eluting Intraluminal Devices, Percutaneous Approach (ICD-10-PCS; principal; 2019-05-15)
PROC: 4A023N7 Measurement of Cardiac Sampling and Pressure, Left Heart, Percutaneous Approach (ICD-10-PCS; 2019-05-15)
PROC: B2111ZZ Fluoroscopy of Multiple Coronary Arteries using Low Osmolar Contrast (ICD-10-PCS; 2019-05-15)
PROC: B2151ZZ Fluoroscopy of Left Heart using Low Osmolar Contrast (ICD-10-PCS; 2019-05-15)
DX: I21.09 ST elevation (STEMI) myocardial infarction involving other coronary artery of anterior wall (principal); I50.23 Acute on chronic systolic (congestive) heart failure; I47.1 Supraventricular tachycardia; I25.10 Atherosclerotic heart disease of native coronary artery without angina pectoris; I48.91 Unspecified atrial fibrillation; I11.0 Hypertensive heart disease with heart failure; E11.9 Type 2 diabetes mellitus without complications; J44.9 Chronic obstructive pulmonary disease, unspecified; E78.00 Pure hypercholesterolemia, unspecified; I25.5 Ischemic cardiomyopathy; E03.9 Hypothyroidism, unspecified; Z85.46 Personal history of malignant neoplasm of prostate; Z79.51 Long term (current) use of inhaled steroids; Z79.82 Long term (current) use of aspirin; Z79.899 Other long term (current) drug therapy; Z88.8 Allergy status to other drugs, medicaments and biological substances
CPT/HCPCS: 36415; 36416; 71045; 80048; 80053; 80061; 82550; 82553; 83036; 83690; 83880; 84443; 84484; 85025; 85347; 85610; 85730; 86850; 86870; 86880; 86900; 86901; 86905; 86922; 92928; 93005; 93010; 93306; 93454; 93798; 94640; 96374; C1725; C1769; C1874; C1887; C9600; J0282; J0461; J0583; J1265; J1644; J2270; J7070; J7620; Q9967

== ENCOUNTER 2019-05-26 04:58 | Inpatient (IN) | payer OTHER ==
[2019-05-26 05:38] LABS: #Eosinphils 0.2 thou/uL (0.0-0.7); #Lymphocytes 1.2 thou/uL (1.20-3.40); #Monocytes 0.5 thou/uL (0.11-0.59); #Neutrophils 7.1 thou/uL (1.40-6.50); %Basophils 0.3 % (0.0-1.0); %Eosinophils 2.6 % (0.0-10.0); %Lymphocytes 13.2 % (21.0-51.0); %Monocytes 5.7 % (0.0-10.0); %Neutrophils 78.2 % (42.0-75.0); Hemoglobin 11.9 g/dL (14.0-18.0); Mean Corpuscular HGB CONC 32.5 g/dL (32.0-36.0); Mean Corpuscular Volume 98.4 fL (78.0-98.0); Mean Platelet Volume 6.9 fL (7.4-10.4); Platelet Count 203 thou/uL (130-400); RBC Distribution Width 11.7 % (11.5-14.5); Red Blood Cell (RBC) Count 3.73 mill/uL (4.70-6.10); White Blood Cell (WBC) Count 9.1 thou/uL (4.8-10.8)
[2019-05-26 05:59] LABS: ALT (SGPT) 22 U/L (8-55); AST (SGOT) 18 U/L (5-34); Albumin 3.3 g/dL (3.4-4.8); Alkaline Phosphatase 75 U/L (40-150); Anion Gap 12 mmol/L (10-20); BUN (Urea Nitrogen) 15 mg/dL (8.4-25.7); Bilirubin, Total 1.1 mg/dL (0.2-1.2); Calc. Creatinine Clearance 0 mL/min (70-130); Calcium 8.8 mg/dL (7.8-10.44); Carbon Dioxide 27 mmol/L (23-31); Chloride 99 mmol/L (98-107); Estimated GFR-MDRD 73; Globulin 3.4 g/dL (2.4-3.5); Glucose 133 mg/dL (83-110); Potassium 4.3 mmol/L (3.5-5.1); Protein, Total 6.7 g/dL (5.8-8.1); Sodium 134 mmol/L (136-145)
[2019-05-26 06:07] LABS: Troponin I 0.396 ng/mL (< 0.028)
[2019-05-26] MEDS ORDERED: Aspirin Chewable 81 MG TAB ONE (06:25)
[2019-05-26] MEDS ORDERED: Furosemide 40 MG/4 ML VIAL ONE (06:25)
--- NOTE | 2019-05-26 08:11 | RAD ---
RADIOGRAPH CHEST 1 VIEW: DATE: 05/26/2019 TIME: 5:27 AM HISTORY: 73-year-old male with chest pain COMPARISON: 05/15/2019 FINDINGS: New finding of multifocal patchy airspace densities in the bilateral mid and lower lung zones. Lung a pices are spared. No pulmonary edema or cardiomegaly. Small right pleural effusion. IMPRESSION: Evidence for Multifocal bilateral pneumonia
[2019-05-26] MEDS ORDERED: Dextrose 50% Abboject 50 ML SYRINGE SLOW IVP PRN (08:13)
[2019-05-26] MEDS ORDERED: HumaLOG 300 UNITS/3 ML VIAL SC PRN (08:13)
[2019-05-26] MEDS ORDERED: Dextrose 5% in Water 1,000 ML IV PRN (08:13)
[2019-05-26 09:54] LABS: Troponin I 0.404 ng/mL (< 0.028)
[2019-05-26] MEDS ORDERED: Clopidogrel Bisulfate 75 MG TAB ONE (10:13)
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
[2019-05-26] MEDS ORDERED: HumaLOG 300 UNITS/3 ML VIAL ONE (11:52)
[2019-05-26] MEDS ORDERED: Enoxaparin Sodium 40 MG/0.4 ML SYRINGE ONE (11:52)
[2019-05-26] MEDS: Enoxaparin Sodium 40 MG/0.4 ML SYRINGE SC SCH (12:01)
[2019-05-26] MEDS: Lisinopril 10 MG TAB PO SCH ×2 (12:01→21:32)
[2019-05-26] MEDS: Potassium Chloride 20 MEQ TAB PO SCH (12:06)
[2019-05-26 12:17] LABS: Critical Call Chem Troponin I RESULT DECREASING; Troponin I 0.325 ng/mL (< 0.028)
[2019-05-26 14:04] VITALS: BMI 29.7
[2019-05-26] MEDS: Furosemide 40 MG/4 ML VIAL SLOW IVP SCH (14:08)
[2019-05-26] MEDS: Carvedilol 25 MG TAB PO SCH (17:39)
[2019-05-26] MEDS: Amiodarone 200 MG TAB PO SCH (21:31)
[2019-05-26] MEDS: Atorvastatin Calcium 10 MG TAB PO SCH (21:32)
--- NOTE | 2019-05-27 01:54 | CON ---
DATE OF CONSULTATION: HISTORY OF PRESENT ILLNESS: Haseeb Fleming is a 73-year-old white male institutionalized in [place] [facility]. He had 3 stents placed at [facility] 3 or 4 years ago. He then presented here on 05/15/2019, complaining of 2 weeks of sharp generalized chest discomfort that would last approximately 1 hour at a time. He again had such episode, was brought to the emergency room and had 1-[address]-segment depression V2 through V4, as well as somewhat hyperacute T-waves. He continued to have the chest discomfort and it was not pleuritic in nature. It is felt best to take him to the manager laboratory with his history of previous stent placement. He had a 20% left main, totally occluded proximal LAD followed by a 95% proximal LAD. There was a 90% apical LAD stenosis. The circumflex had proximal to distal stents which were patent. The first obtuse marginal had an 80% osteal lesion and the third obtuse marginal had an 80% lesion. The right coronary artery had a proximal stent which was patent. There was a 60% lesion in the right posterior lateral. He underwent placement of Synergy 3.0 x 28 mm and 3.5 x 32 mm from the mid to proximal LAD. A 3.5 mm stent was postdilated with a 4 mm balloon. His chest discomfort dramatically improved. His cholesterol was 130, triglycerides 146, HDL 37, LDL 64, on pravastatin 40. His medicines on admission at that time were furosemide 40 mg b.i.d., lisinopril 40 daily, carvedilol 25 b.i.d., and it was felt that he probably had poor left ventricular function to begin with. Indeed on echocardiogram, 3 days after his myocardial infarction, his ejection fraction was 15% to 20% with akinesis in the apex and the septum, moderate left atrial enlargement, moderate mitral regurgitation, mild tricuspid regurgitation. He also developed atrial fibrillation with fast ventricular response, was placed on IV amiodarone and converted to sinus rhythm and then was transitioned to p.o. amiodarone. LifeVest was arranged; however, at time of discharge, the patient refused to wear it. His a.m. dose of furosemide was increased to 80 mg and continued to have the q.p.m. dose of 40 mg due to some crackles at the bases. Over the last 2-3 days, he has noted increased shortness of breath as well as episodes of PND and orthopnea. He has had increased peripheral edema. He also is brought to the emergency room due to his dyspnea, has been given intravenous Lasix and has had improvement in his symptoms. He denies any chest pain. PAST MEDICAL HISTORY: Coronary artery disease, hypertension, diabetes, hyperlipidemia, hypothyroidism, prostate cancer, COPD. MEDICATIONS: At the time of discharge: 1. Carvedilol 25 mg b.i.d. 2. Albuterol 2 puffs q.i.d. p.r.n. 3. Amiodarone 400 mg b.i.d. x2 weeks, 200 mg b.i.d. x2 weeks, and then 200 daily. 4. Aspirin 81 daily. 5. Plavix 75 mg daily. 6. Furosemide 80 mg q.a.m., 40 mg q.p.m. 7. Synthroid 150 mcg daily. 8. Lisinopril 10 mg b.i.d. 9. Potassium chloride 20 mEq q.a.m. 10. Pravastatin 40 at bedtime. 11. Terazosin 5 mg at bedtime. ALLERGIES: MINOXIDIL. SOCIAL HISTORY: He states he never smoked. FAMILY HISTORY: Unremarkable. REVIEW OF SYSTEMS: A 10-point review of systems unremarkable. PHYSICAL EXAMINATION: VITAL SIGNS: Blood pressure 134/75, pulse 81. HEENT: PERRL. NECK: Supple. CHEST: Crackles at the bases. CARDIAC: S1 and S2 normal without any S3, S4, or murmurs. ABDOMEN: Normal bowel sounds without tenderness or organomegaly. EXTREMITIES: Reveal 1+ pretibial edema. NEUROLOGICAL: Grossly intact. LABORATORY DATA: EKG reveals normal sinus rhythm with low voltage QRS and anterolateral infarction. Troponin I 0.404. BNP 1756.0. Sodium 134, potassium 4.3, chloride 99, carbon dioxide 27, BUN 15, creatinine 1.00, glucose 133. Hemoglobin 11.9, hematocrit 36.7, white count 9100, platelets 203,000. IMPRESSION: 1. Acute on chronic systolic heart failure. 2. Severe ischemic cardiomyopathy with ejection fraction of 15% to 20%. 3. History of stent placement in the circumflex and right coronary artery 3 or 4 years ago at [facility]. 4. Anterolateral ST-elevation myocardial infarction on 05/15/2019, with placement of drug-eluting stent in the proximal LAD. Troponin I 122.691 and MB 286.2. His current elevation of troponin I is probably of a reflection of his myocardial infarction 10 days ago with very high enzyme levels. I do not feel that he has had myocardial infarction at this time. 5. Atrial fibrillation with fast ventricular response during last admission, converted with IV amiodarone. 6. Ventricular tachycardia post stent placement. 7. Hypertension. 8. Hypercholesterolemia. 9. Diabetes. 10. Hypothyroidism. 11. History of prostate cancer, status post radiation. PLAN: Mr. Fleming to be treated with intravenous diuretics. He probably will require furosemide 80 mg b.i.d. or we may need to switch him to torsemide. It is somewhat difficult being able to follow up on this patient as an outpatient and provide adjustment in his medications. Job ID: [id number] [email or web address]
[2019-05-27] MEDS: Furosemide 40 MG/4 ML VIAL SLOW IVP SCH ×2 (04:46→15:14)
[2019-05-27] MEDS: Levothyroxine 150 MCG TAB PO SCH (04:46)
[2019-05-27 05:12] LABS: #Lymphocytes 0.9 thou/uL (1.20-3.40); #Monocytes 0.8 thou/uL (0.11-0.59); #Neutrophils 12.6 thou/uL (1.40-6.50); %Eosinophils 0.3 % (0.0-10.0); %Lymphocytes 6.3 % (21.0-51.0); %Monocytes 5.4 % (0.0-10.0); %Neutrophils 88.1 % (42.0-75.0); Hemoglobin 12.1 g/dL (14.0-18.0); Mean Corpuscular HGB CONC 33.6 g/dL (32.0-36.0); Mean Corpuscular Volume 98.4 fL (78.0-98.0); Mean Platelet Volume 7.7 fL (7.4-10.4); Platelet Count 226 thou/uL (130-400); RBC Distribution Width 11.5 % (11.5-14.5); Red Blood Cell (RBC) Count 3.65 mill/uL (4.70-6.10); White Blood Cell (WBC) Count 14.4 thou/uL (4.8-10.8)
[2019-05-27 05:31] LABS: Anion Gap 13 mmol/L (10-20); BUN (Urea Nitrogen) 22 mg/dL (8.4-25.7); Calc. Creatinine Clearance 94 mL/min (70-130); Calcium 9.5 mg/dL (7.8-10.44); Carbon Dioxide 25 mmol/L (23-31); Chloride 100 mmol/L (98-107); Estimated GFR-MDRD 78; Glucose 170 mg/dL (83-110); Potassium 4.4 mmol/L (3.5-5.1); Sodium 134 mmol/L (136-145)
[2019-05-27] MEDS: Clopidogrel Bisulfate 75 MG TAB PO SCH (08:49)
[2019-05-27] MEDS: Amiodarone 200 MG TAB PO SCH ×2 (08:49→21:58)
[2019-05-27] MEDS: Aspirin 325 mg Enteric Coated Tablet PO SCH (08:49)
[2019-05-27] MEDS: Potassium Chloride 20 MEQ TAB PO SCH (08:49)
[2019-05-27] MEDS: Lisinopril 10 MG TAB PO SCH ×2 (08:50→21:57)
[2019-05-27] MEDS: Terazosin HCl 5 MG CAP PO SCH (08:51)
[2019-05-27] MEDS: Enoxaparin Sodium 40 MG/0.4 ML SYRINGE SC SCH (08:52)
[2019-05-27] MEDS: Carvedilol 25 MG TAB PO SCH ×2 (08:52→17:08)
--- NOTE | 2019-05-27 16:37 | PRG ---
DATE OF SERVICE: 05/27/2019 SUBJECTIVE: The patient was seen and examined at bedside. There are 2 guards in the room. He does not have much complaints to offer except that he is feeling better and his shortness of breath improved to some extent. He visited with Dr. Weir last night. OBJECTIVE: VITAL SIGNS: Blood pressure is 135/70, pulse is 70, temperature is 98.1, respiratory rate is 16, and O2 saturation is 96% on 2 L by nasal cannula. His output is measured at 525 and intake is 600 mL. HEENT: His head is atraumatic and normocephalic. Eyes are PERRLA and sclerae are nonicteric. Oral mucosa is slightly dry. NECK: Supple. LUNGS: Breath sounds diminished at both bases with bilateral crackles at both bases. HEART: S1 and S2 normal. No S3. No S4. ABDOMEN: Soft and nontender. EXTREMITIES: 1+ to 2+ peripheral edema similar bilaterally on both lower extremities. NEUROLOGIC: He is alert and oriented x4. There are no any motor deficits. His hands are in cuffs and his feet are in cuffs. The steal cuffs were changed to plastic after we requested for that. LABORATORY DATA: Labs showed white count of 14.4, hemoglobin 12.1, hematocrit 36.0, and platelet count 226. Sodium of 134, potassium 4.4, chloride 100, CO2 of 25, BUN 22, and creatinine 0.94. Glycemia is ranging from 158 to 220. IMPRESSION: 1. Acute on chronic systolic heart failure. 2. Hypertension. 3. Diabetes mellitus, type 2. 4. Severe ischemic cardiomyopathy with left ventricular ejection fraction estimated at 15% to 20%. 5. History of anterolateral ST-elevation myocardial infarction recently with placement of drug-eluting stent in the proximal left anterior descending artery. 6. Atrial fibrillation per previous admission. 7. History of ventricular tachycardia, post stent placement. 8. History of prostate cancer, status post radiation. 9. Hypothyroidism. PLAN: Since his output is not that great, we are going to increase the dose to 80 mg q.12 hours on his Lasix and continue his carvedilol and clopidogrel along with amiodarone and lisinopril. He will continue on his aspirin, DuoNebs p.r.n., and potassium chloride. He will be on DVT prophylaxis with Lovenox and statin at night. Job ID: [id number]
[2019-05-27] MEDS ORDERED: Furosemide 40 MG/4 ML VIAL SLOW IVP SCH (16:45)
[2019-05-27] MEDS: Atorvastatin Calcium 10 MG TAB PO SCH (21:57)
[2019-05-27] MEDS: Insulin Glargine 10 UNITS in Pre-Filled Syringe SC SCH (21:58)
[2019-05-28] MEDS: Acetaminophen 325 MG TAB PO PRN (01:20)
[2019-05-28] MEDS: Levothyroxine 150 MCG TAB PO SCH (05:37)
[2019-05-28] MEDS: Furosemide 100 MG/10 ML VIAL SLOW IVP SCH ×4 (05:37→15:35)
[2019-05-28] MEDS: Enoxaparin Sodium 40 MG/0.4 ML SYRINGE SC SCH (08:59)
[2019-05-28] MEDS: Potassium Chloride 20 MEQ TAB PO SCH (08:59)
[2019-05-28] MEDS: Aspirin 325 mg Enteric Coated Tablet PO SCH (09:00)
[2019-05-28] MEDS: Amiodarone 200 MG TAB PO SCH ×2 (09:00→21:39)
[2019-05-28] MEDS: Carvedilol 25 MG TAB PO SCH ×2 (09:00→17:05)
[2019-05-28] MEDS: Terazosin HCl 5 MG CAP PO SCH (09:00)
[2019-05-28] MEDS: Clopidogrel Bisulfate 75 MG TAB PO SCH (09:00)
[2019-05-28] MEDS: Lisinopril 10 MG TAB PO SCH ×2 (09:00→21:39)
--- NOTE | 2019-05-28 13:20 | PRG ---
DATE OF SERVICE: 05/28/2019 SUBJECTIVE: The patient is seen and examined at the bedside. He has 2 guards, 1 in the room and 1 is outside of the room. He has plastic cuffs on his hands and both feet. He feels better. His appetite is fair. OBJECTIVE: VITAL SIGNS: Blood pressure is 122/65, pulse is 64, temperature is 98.1, respirations 16, and O2 saturation is 96% on 2 L by nasal cannula. HEENT: His pupils are responding to light properly. His sclerae are nonicteric. Oral mucosa is moist. NECK: Supple. LUNGS: Breath sounds diminished at both bases with bilateral crackles at both bases present. No wheezing. HEART: S1 and S2, somewhat distant. No S3. No S4. ABDOMEN: Soft and nontender. EXTREMITIES: 1+ peripheral edema similar bilaterally. NEUROLOGIC: He is able to answer all my questions properly. LABORATORY DATA: Pending. IMPRESSION: 1. Acute on chronic systolic heart failure. 2. Hypertension. 3. Severe ischemic cardiomyopathy with left ventricular ejection fraction estimated at 15% to 20%. 4. Diabetes mellitus type 2. 5. History of anterolateral ST-elevation myocardial infarction with placement of drug-eluting stent in the proximal left anterior descending artery. 6. Atrial fibrillation per previous admission. 7. Now in sinus. 8. History of ventricular tachycardia, post stent placement. 9. History of prostate cancer, status post radiation. 10. Hypothyroidism. PLAN: Plan is to obtain his CBC and BMP tomorrow morning. Continue his diuresis with higher dose of Lasix at 80 mg twice a day. Get the chest x-ray tomorrow and continue his other regimens, which include clopidogrel, carvedilol, amiodarone, and lisinopril and aspirin. Job ID: [id number]
--- NOTE | 2019-05-28 14:26 | PDOC.CTH ---
Cardiology Progress Note - Subjective The pt seen and examined. No overnight events. No cardiac complaints. He cont. refusing to wear LifeVest. - Objective Vital Signs Temp Pulse Resp BP BP Pulse Ox 05/28/19 12:25 98.1 F 64 16 122/65 96 05/28/19 08:05 98.1 F 81 16 176/94 H 97 05/28/19 08:00 97 05/28/19 03:31 98.5 F 61 19 119/66 96 Weight 208 lb 12.8 oz 05/27/19 05/28/19 05/29/19 06:59 06:59 06:59 Intake Total 600 1520 Output Total 525 3650 Balance 75 -2130 - Physical Examination General/Neuro: alert & oriented x3 Neck: no JVD present Lungs: CTA Heart: RRR Abdomen: soft Extremities: other: (2+ pitting BLE edema) - Telemetry Telemetry Rhythm: SR - Labs Result Diagrams: 05/27/19 04:32 05/27/19 04:32 Troponin/CKMB Troponin I 0.325 ng/mL (< 0.028) H* 05/26/19 11:28 - Assessment/Plan 1. Acute on Chronic Systolic HF - cont. exp wheezing and 2+ pitting BLE edema; On BBlocker, GUSTAVO, Diuretic; the pt cont refusing LifeVest today. 2. CAD with s/p ATIYA in LAD on 05/15/2019 - stable; on Coreg 25mg bid, ASA 325mg qd, Plavix 75mg pd, Lisinorpil, and Lipitor 3. Severe Ischemic CMY - On bblocker, GUSTAVO and diuretic; The pt refused LifeVest 4. Post cath Afib on 05/15/2019 - On Amiodarone 400mg BID since 05/15/2019; On ASA 325mg qd 5. HTN - stable 6. HLD - on Statin 7. DM type 2 8. Hypothyroidism 9. Hx of Prostate Ca with s/p radiation MAR reviewed Pt. seen and eval. by me. I agree with the A/P by the [employer]. We have discussed the pt. together.He is breathing better per his description but still has expiratory wheezing. The neb treatments are [email or web address] Review of Systems - Review of Systems Constitutional: reports: no symptoms reported EENTM: reports: no symptoms reported Respiratory: reports: shortness of breath Cardiac (ROS): reports: no symptoms reported ABD/GI: reports: no symptoms reported : reports: no symptoms reported
[2019-05-28] MEDS: Atorvastatin Calcium 10 MG TAB PO SCH (21:39)
[2019-05-28] MEDS: Insulin Glargine 10 UNITS in Pre-Filled Syringe SC SCH (21:40)
[2019-05-29] MEDS: Acetaminophen 325 MG TAB PO PRN (04:03)
[2019-05-29] MEDS: Furosemide 100 MG/10 ML VIAL SLOW IVP SCH (05:51)
[2019-05-29] MEDS: Levothyroxine 150 MCG TAB PO SCH (05:51)
[2019-05-29 06:18] LABS: #Eosinphils 0.5 thou/uL (0.0-0.7); #Lymphocytes 1.5 thou/uL (1.20-3.40); #Monocytes 0.6 thou/uL (0.11-0.59); #Neutrophils 5.3 thou/uL (1.40-6.50); %Basophils 0.4 % (0.0-1.0); %Eosinophils 6.8 % (0.0-10.0); %Lymphocytes 18.6 % (21.0-51.0); %Monocytes 7.4 % (0.0-10.0); %Neutrophils 66.8 % (42.0-75.0); Hemoglobin 12.9 g/dL (14.0-18.0); Mean Corpuscular HGB CONC 32.8 g/dL (32.0-36.0); Mean Corpuscular Hemoglobin 32.5 pg (27.0-31.0); Platelet Count 219 thou/uL (130-400); RBC Distribution Width 11.6 % (11.5-14.5); Red Blood Cell (RBC) Count 3.96 mill/uL (4.70-6.10)
[2019-05-29 06:38] LABS: Anion Gap 10 mmol/L (10-20); BUN (Urea Nitrogen) 25 mg/dL (8.4-25.7); Calc. Creatinine Clearance 80 mL/min (70-130); Calcium 9.2 mg/dL (7.8-10.44); Carbon Dioxide 33 mmol/L (23-31); Chloride 98 mmol/L (98-107); Estimated GFR-MDRD 68; Glucose 150 mg/dL (83-110); Potassium 4.2 mmol/L (3.5-5.1); Sodium 137 mmol/L (136-145)
--- NOTE | 2019-05-29 08:10 | RAD ---
EXAM: Chest one view: HISTORY: Pulmonary edema COMPARISON: 05/26/2019 FINDINGS: Heart size: Within normal limits. Lungs: Alveolar and interstitial parenchymal change throughout most of the medial right lung showing some progression particularly in the right upper lobe. There is improvement in the appearance of the left mid and lower lung zone. Bilateral costophrenic angle blunting. IMPRESSION: Progressive parenchymal changes in the right lung with improvement in the left mid and lower lung. Co ntinued short-term follow-up.
[2019-05-29] MEDS: Potassium Chloride 20 MEQ TAB PO SCH (09:08)
[2019-05-29] MEDS: Terazosin HCl 5 MG CAP PO SCH (09:08)
[2019-05-29] MEDS: Amiodarone 200 MG TAB PO SCH ×2 (09:08→21:01)
[2019-05-29] MEDS: Lisinopril 10 MG TAB PO SCH ×2 (09:09→21:01)
[2019-05-29] MEDS: Clopidogrel Bisulfate 75 MG TAB PO SCH (09:09)
[2019-05-29] MEDS: Aspirin 325 mg Enteric Coated Tablet PO SCH (09:10)
[2019-05-29] MEDS: Carvedilol 25 MG TAB PO SCH ×2 (09:10→17:38)
[2019-05-29] MEDS: Enoxaparin Sodium 40 MG/0.4 ML SYRINGE SC SCH (09:10)
[2019-05-29] MEDS: Cefepime 1 GM in Sodium Chloride 0.9% 100 ML IVPB SCH (11:35)
[2019-05-29] MEDS: Furosemide 40 MG/4 ML VIAL SLOW IVP SCH (13:19)
--- NOTE | 2019-05-29 13:57 | PRG ---
DATE OF SERVICE: 05/29/2019 SUBJECTIVE: The patient was seen and examined at the bedside. He is doing better. He is still has some cough with some phlegm, but it is mostly clear. OBJECTIVE: VITAL SIGNS: Blood pressure is 130/66, pulse is 62, temperature is 96.9, respiratory rate is 17, and O2 saturation is 98% on room air. HEENT: His head is atraumatic and normocephalic. Eyes, PERRLA. Sclerae are nonicteric. Oral mucosa is moist. NECK: Supple. LUNGS: Bilateral rales at both bases. Mild occasional wheezes. HEART: S1 and S2, somewhat distant. No S3. No S4. Systolic murmur at the left sternal border. ABDOMEN: Soft and nontender. EXTREMITIES: No clubbing, cyanosis, or edema. NEUROLOGIC: He has cuffs on his wrist and his ankles. He follows my commands. Does not show any motor deficits. LABORATORY DATA: White count of 8.0, hemoglobin 12.9, hematocrit 39.2, and platelet count is 219. Chemistry within normal limits except for CO2 which is 33, glycemia is ranging from 98 to 165, and calcium 9.2. IMAGING STUDIES: Chest x-ray showed progressive parenchymal changes in the right lung with improvement in the left mid and lower lung. IMPRESSION: 1. Acute on chronic systolic heart failure. 2. Pneumonia. 3. Hypertension. 4. Severe ischemic cardiomyopathy with left ventricular ejection fraction estimated at 15% to 20%. 5. Diabetes mellitus, type 2, well controlled. 6. History of anterolateral ST-elevation myocardial infarction with placement of drug-eluting stent in the proximal left anterior descending artery. 7. Atrial fibrillation per previous admission. 8. History of ventricular tachycardia, post stent placement. 9. History of prostate cancer, status post radiation. 10. Hypothyroidism. PLAN: Plan is to start him on cefepime 1 g every 12 hours IV piggyback. We will continue his diuresis. I am going to decrease his Lasix to 40 mg since he is putting out a lot of urine, about 3300 to 3600 daily, and his weight is down to 205 from 212, which is 7 pounds. We will continue the rest of the regimen. Job ID: [id number]
[2019-05-29] MEDS: Insulin Glargine 10 UNITS in Pre-Filled Syringe SC SCH (20:59)
[2019-05-29] MEDS: Atorvastatin Calcium 10 MG TAB PO SCH (21:01)
[2019-05-30] MEDS: Cefepime 1 GM in Sodium Chloride 0.9% 100 ML IVPB SCH ×2 (00:11→11:49)
[2019-05-30 05:43] LABS: Anion Gap 10 mmol/L (10-20); BUN (Urea Nitrogen) 23 mg/dL (8.4-25.7); Calc. Creatinine Clearance 98 mL/min (70-130); Calcium 8.6 mg/dL (7.8-10.44); Carbon Dioxide 30 mmol/L (23-31); Chloride 100 mmol/L (98-107); Estimated GFR-MDRD 86; Glucose 126 mg/dL (83-110); Potassium 3.7 mmol/L (3.5-5.1); Sodium 136 mmol/L (136-145)
[2019-05-30] MEDS: Levothyroxine 150 MCG TAB PO SCH (05:57)
[2019-05-30] MEDS: Furosemide 40 MG/4 ML VIAL SLOW IVP SCH ×2 (05:57→15:05)
[2019-05-30] MEDS ORDERED: Aspirin 325 mg Enteric Coated Tablet PO SCH (09:00)
[2019-05-30] MEDS: Clopidogrel Bisulfate 75 MG TAB PO SCH (09:41)
[2019-05-30] MEDS: Terazosin HCl 5 MG CAP PO SCH (09:41)
[2019-05-30] MEDS: Potassium Chloride 20 MEQ TAB PO SCH (09:41)
[2019-05-30] MEDS: Enoxaparin Sodium 40 MG/0.4 ML SYRINGE SC SCH (09:42)
[2019-05-30] MEDS: Amiodarone 200 MG TAB PO SCH ×4 (09:42→20:06)
[2019-05-30] MEDS: Lisinopril 10 MG TAB PO SCH ×2 (09:42→20:05)
[2019-05-30] MEDS: Carvedilol 25 MG TAB PO SCH ×2 (09:42→17:25)
[2019-05-30] MEDS: Aspirin 325 mg Enteric Coated Tablet PO SCH (10:27)
[2019-05-30] MEDS ORDERED: Aspirin 81 mg Enteric Coated Tablet PO SCH (10:30)
--- NOTE | 2019-05-30 12:56 | PRG ---
DATE OF SERVICE: 05/30/2019 SUBJECTIVE: The patient is seen and examined at the bedside. He complains of shortness of breath. OBJECTIVE: VITAL SIGNS: Blood pressure is 176/84, pulse is 65, temperature is 97.9, respiratory rate is 20, and he is 99% on 2 L by nasal cannula. HEENT: His head is atraumatic and normocephalic. Sclerae nonicteric. Oral mucosa moist. NECK: Supple. LUNGS: Right lung with crackles and rales present front and back. HEART: S1 and S2 normal. There is a systolic murmur at the left sternal border 2/6. ABDOMEN: Soft and nontender. EXTREMITIES: No clubbing, cyanosis, or edema. NEUROLOGIC: He follows my commands. He moves his all 4 extremities. He has a plastic cuffs on his wrist and on his ankles. LABORATORY DATA: Electrolytes normal. Creatinine 0.87, glucose 126, and calcium at 8.6. IMPRESSION: 1. Right lung pneumonia. 2. Acute on chronic systolic heart failure, improved. 3. Hypertension. We will make some adjustment to his regimen for blood pressure. 4. Severe ischemic cardiomyopathy with left ventricular ejection fraction estimated at 15% to 20%. 5. Diabetes mellitus type 2, well controlled. 6. History of anterolateral ST-elevation myocardial infarction with placement of drug-eluted stent in the proximal left anterior descending artery. 7. Atrial fibrillation per previous admission. 8. History of ventricular tachycardia, post stent placement. 9. History of prostate cancer, status post radiation. 10. Hypothyroidism. PLAN: Continue cefepime 1 g every 12 hours IV piggyback. Continue diuresis with Lasix and his amiodarone, and I will double the dose on his lisinopril. We will continue prophylaxis with Lovenox and get PT. Job ID: [id number]
[2019-05-30] MEDS: Insulin Glargine 10 UNITS in Pre-Filled Syringe SC SCH (20:07)
[2019-05-30] MEDS ORDERED: Atorvastatin Calcium 10 MG TAB PO SCH (21:00)
[2019-05-31] MEDS: Cefepime 1 GM in Sodium Chloride 0.9% 100 ML IVPB SCH ×2 (00:16→11:55)
[2019-05-31] MEDS: Acetaminophen 325 MG TAB PO PRN ×2 (00:20→16:17)
[2019-05-31] MEDS: Levothyroxine 150 MCG TAB PO SCH (05:28)
[2019-05-31] MEDS: Furosemide 40 MG/4 ML VIAL SLOW IVP SCH ×2 (05:28→14:31)
[2019-05-31 06:11] LABS: Anion Gap 9 mmol/L (10-20); BUN (Urea Nitrogen) 22 mg/dL (8.4-25.7); Calc. Creatinine Clearance 89 mL/min (70-130); Calcium 8.7 mg/dL (7.8-10.44); Carbon Dioxide 31 mmol/L (23-31); Chloride 102 mmol/L (98-107); Estimated GFR-MDRD 77; Glucose 101 mg/dL (83-110); Potassium 3.9 mmol/L (3.5-5.1); Sodium 138 mmol/L (136-145)
[2019-05-31] MEDS: Lisinopril 10 MG TAB PO SCH (08:43)
[2019-05-31] MEDS: Terazosin HCl 5 MG CAP PO SCH (08:43)
[2019-05-31] MEDS: Carvedilol 25 MG TAB PO SCH ×2 (08:43→16:17)
[2019-05-31] MEDS: Potassium Chloride 20 MEQ TAB PO SCH (08:43)
[2019-05-31] MEDS: Amiodarone 200 MG TAB PO SCH ×2 (08:43→14:31)
[2019-05-31] MEDS: Clopidogrel Bisulfate 75 MG TAB PO SCH (08:43)
[2019-05-31] MEDS: Enoxaparin Sodium 40 MG/0.4 ML SYRINGE SC SCH (08:44)
[2019-05-31] MEDS ORDERED: Aspirin 81 mg Enteric Coated Tablet PO SCH (09:00)
[2019-05-31] MEDS ORDERED: Cefdinir 300 MG CAP PO SCH ×2 (13:00→21:00)
[2019-05-31 13:34] LABS: #Eosinphils 0.8 thou/uL (0.0-0.7); #Lymphocytes 1.4 thou/uL (1.20-3.40); #Monocytes 0.8 thou/uL (0.11-0.59); #Neutrophils 6.1 thou/uL (1.40-6.50); %Basophils 0.1 % (0.0-1.0); %Eosinophils 8.6 % (0.0-10.0); %Lymphocytes 15.4 % (21.0-51.0); %Monocytes 8.9 % (0.0-10.0); Hemoglobin 12.9 g/dL (14.0-18.0); Mean Corpuscular HGB CONC 33.4 g/dL (32.0-36.0); Mean Corpuscular Hemoglobin 32.9 pg (27.0-31.0); Mean Corpuscular Volume 98.5 fL (78.0-98.0); Mean Platelet Volume 7.1 fL (7.4-10.4); Platelet Count 222 thou/uL (130-400); RBC Distribution Width 11.5 % (11.5-14.5); Red Blood Cell (RBC) Count 3.91 mill/uL (4.70-6.10); White Blood Cell (WBC) Count 9.1 thou/uL (4.8-10.8)
[2019-05-31] MEDS ORDERED: Doxycycline 100 MG CAP PO SCH ×2 (15:00→21:00)
[2019-05-31] MEDS ORDERED: Acyclovir 800 mg Tablet PO SCH (16:00)
[2019-05-31 16:56] VITALS: BP 131/86
[2019-05-31] MEDS ORDERED: valACYclovir 500 MG TAB PO SCH (17:00)
[2019-05-31 17:29] VITALS: TEMP 98.1
--- NOTE | 2019-05-31 19:59 | PDOC.EVN ---
Event Note - Event Note Event Note: Called [facility] at . Spoke to Efe re: need to increase furosemide dose to 80 mg BID. She will take care of it at their end.
--- NOTE | 2019-05-31 21:16 | DIS ---
DATE OF ADMISSION: 05/26/2019 DATE OF DISCHARGE: 05/31/2019 PRIMARY CARE PROVIDER: Unknown. DISCHARGE DIAGNOSES: 1. Pneumonia. 2. Acute on chronic systolic heart failure, [place] Heart Association class 3, ACC/AHA class C. 3. Severe ischemic cardiomyopathy. 4. Herpes zoster. CONDITION OF THE PATIENT ON THE DAY OF DISCHARGE: Stable. I assessed Mr. Fleming on the day of discharge. He denies any chest pain or shortness of breath. Vital signs are stable. S1 and S2 are heard, regular. Lungs are clear to auscultation bilaterally. DISCHARGE MEDICATIONS: 1. Tylenol 650 mg two times a day as needed. 2. Proventil HFA 2 puffs four times a day as needed. 3. Synthroid 150 mcg daily. 4. Pravastatin 40 mg at bedtime. 5. Terazosin 5 mg at bedtime. 6. Amiodarone 400 mg three times a day for 2 weeks, then 400 mg two times a day for 2 weeks, then 400 mg daily for 2 weeks, then 200 mg daily. 7. Aspirin 81 mg daily. 8. Coreg 25 mg two times a day. 9. Omnicef 300 mg two times a day for 1 week. 10. Plavix 75 mg daily. 11. Doxycycline 100 mg two times a day for 1 week. 12. Furosemide (Lasix) 80 mg two times a day. 13. Lisinopril 10 mg two times a day. 14. Potassium chloride 20 mEq daily. 15. Valtrex 1000 mg three times a day for 1 week. HOSPITAL COURSE: Mr. Fleming is a pleasant 73-year-old gentleman, who was admitted to [facility] on May 26, 2019 for shortness of breath. Please refer to Dr. Munoz's history and physical note dated May 26, 2019 for further details. He was admitted to the hospital. He was seen by Cardiology Service. He was diuresed. He improved clinically. He has been cleared for discharge by Cardiology Service. He was found to have herpes zoster eruption toward the end of this hospitalization. He has been started on valacyclovir. He was also seen by Infectious Disease Service prior to discharge. CONSULTATIONS DURING THIS HOSPITALIZATION: Cardiology, Dr. Weir and Infectious Diseases, Dr. Calderon. Many thanks for allowing me to participate in your patient's care. Please feel free to contact me with any questions or concerns. LABORATORY DATA: On the day of discharge, he has white count of 9100, hemoglobin 12.9, platelet count 222,000. Normal electrolytes and normal creatinine. DISCHARGE DESTINATION: [facility], from where the patient was admitted to the hospital. TOTAL AMOUNT OF TIME SPENT COORDINATING THIS DISCHARGE: 35 minutes. Please note that the patient also had pneumonia at the time of admission and received antibiotics for this diagnosis. Job ID: [id number]
== END 2019-05-31 19:25 | DRG 280 ==
LOC: EEVIPCON 04:58 → ERS 04:58 → ERHOLD 07:00 → 2NO 13:32
PROVIDERS: ADMIT Internal Medicine; ATTEND Internal Medicine
DX: I11.0 Hypertensive heart disease with heart failure (principal); I21.09 ST elevation (STEMI) myocardial infarction involving other coronary artery of anterior wall; J18.9 Pneumonia, unspecified organism; I25.10 Atherosclerotic heart disease of native coronary artery without angina pectoris; E03.9 Hypothyroidism, unspecified; J44.9 Chronic obstructive pulmonary disease, unspecified; B19.20 Unspecified viral hepatitis C without hepatic coma; I25.5 Ischemic cardiomyopathy; I48.91 Unspecified atrial fibrillation; E78.00 Pure hypercholesterolemia, unspecified; I50.23 Acute on chronic systolic (congestive) heart failure; B02.9 Zoster without complications; Z79.899 Other long term (current) drug therapy; Z79.82 Long term (current) use of aspirin; Z85.46 Personal history of malignant neoplasm of prostate; Z87.891 Personal history of nicotine dependence; Z95.818 Presence of other cardiac implants and grafts
CPT/HCPCS: 36415; 36416; 71045; 80048; 80053; 83880; 84484; 85025; 93005; 93010; 93798; 94640; J0692; J1650; J1815; J1940; J1956; J3490; J7620

== ENCOUNTER 2021-03-24 21:20 | Emergency (ER) | payer OTHER ==
[~2021-03-24 21:20] MED LIST: Iopamidol-370 76% 500 ML 1 ML ONE
[2021-03-24 22:09] LABS: #Eosinphils 0.2 thou/uL (0.0-0.7); #Lymphocytes 1.4 thou/uL (1.20-3.40); #Monocytes 0.8 thou/uL (0.11-0.59); #Neutrophils 4.3 thou/uL (1.40-6.50); %Eosinophils 3.6 % (0.0-10.0); %Lymphocytes 21.3 % (21.0-51.0); %Monocytes 11.4 % (0.0-10.0); %Neutrophils 63.8 % (42.0-75.0); Hemoglobin 14.6 g/dL (14.0-18.0); Mean Corpuscular HGB CONC 32.5 g/dL (32.0-36.0); Mean Corpuscular Hemoglobin 32.6 pg (27.0-31.0); Mean Platelet Volume 8.1 fL (7.4-10.4); Platelet Count 136 thou/uL (130-400); RBC Distribution Width 11.8 % (11.5-14.5); Red Blood Cell (RBC) Count 4.47 mill/uL (4.70-6.10); White Blood Cell (WBC) Count 6.7 thou/uL (4.8-10.8)
[2021-03-24 22:20] LABS: ALT (SGPT) 53 U/L (8-55); AST (SGOT) 41 U/L (5-34); Albumin 3.4 g/dL (3.4-4.8); Alkaline Phosphatase 121 U/L (40-110); Anion Gap 13 mmol/L (10-20); BUN (Urea Nitrogen) 15 mg/dL (8.4-25.7); Bilirubin, Total 0.5 mg/dL (0.2-1.2); Calc. Creatinine Clearance 0 mL/min (70-130); Carbon Dioxide 25 mmol/L (23-31); Chloride 106 mmol/L (98-107); Globulin 3.7 g/dL (2.4-3.5); Glucose 186 mg/dL (83-110); Potassium 4.1 mmol/L (3.5-5.1); Protein, Total 7.1 g/dL (5.8-8.1); Sodium 140 mmol/L (136-145)
[2021-03-24 22:26] LABS: Bilirubin Negative (Negative); Blood, Urine Negative (Negative); Clarity Turbid (Clear); Glucose, Urine (Dipstick) Normal (Negative); Ketone, Urine Negative (Negative); Leukocyte Negative Leu/uL (Negative); Nitrite Negative (Negative); Protein, Urine (Dipstick) Negative (Neg-Trace); Urobilinogen Normal mg/dL (Less than 2); pH, Urine 7.5 (5.0-9.0)
[2021-03-24] MEDS ORDERED: cefTRIAXone\\ROCEPHIN 1 GM VIAL ONE (23:18)
[2021-03-24] MEDS ORDERED: Azithromycin 500 MG VIAL ONE (23:18)
[2021-03-24] MEDS ORDERED: Aspirin Chewable 81 MG TAB ONE (23:18)
== END 2021-03-25 01:10 | disposition short-term general hospital (02) ==
LOC: ERS 21:20
DX: J18.9 Pneumonia, unspecified organism (principal); R41.82 Altered mental status, unspecified; E11.9 Type 2 diabetes mellitus without complications; I10 Essential (primary) hypertension; I25.10 Atherosclerotic heart disease of native coronary artery without angina pectoris; E03.9 Hypothyroidism, unspecified; J44.9 Chronic obstructive pulmonary disease, unspecified; Z79.899 Other long term (current) drug therapy; Z79.82 Long term (current) use of aspirin
CPT/HCPCS: 36415; 70450; 70496; 70498; 71045; 80053; 81003; 84443; 84484; 85025; 87040; 87086; 93005; 96365; 96367; J0456; J0696; Q9967

== ENCOUNTER 2021-10-05 03:12 | Inpatient (IN) | payer OTHER ==
[2021-10-05] MEDS ORDERED: Acetaminophen 650 MG Suppository PR PRN (04:56)
[2021-10-05] MEDS ORDERED: Ondansetron PF 4 MG/2 ML Vial IVP PRN (04:56)
[2021-10-05] MEDS ORDERED: Ondansetron ODT 4 MG TAB PO PRN (04:56)
[2021-10-05] MEDS ORDERED: Albuterol 200 PUFF (6.7GM INHALER) ONE (04:59)
[2021-10-05] MEDS ORDERED: Albuterol Sulfate 2.5 mg/3 ml Neb NEB PRN (05:14)
[2021-10-05] MEDS ORDERED: Dextrose 5% in Water 1,000 ML IV PRN (05:36)
[2021-10-05] MEDS ORDERED: Dextrose 50% Abboject 50 ML SYRINGE SLOW IVP PRN (05:36)
[2021-10-05 06:14] LABS: SARS-CoV-2 NAA Rapid Test Not Detected (NotDetected)
[2021-10-05 06:55] LABS: Hemoglobin A1c 6.2 % (4.0-6.0)
[2021-10-05] MEDS ORDERED: Furosemide 40 MG TAB PO SCH (09:00)
[2021-10-05] MEDS: Amlodipine 10 MG TAB PO SCH (09:34)
[2021-10-05] MEDS: Aspirin Chewable 81 MG TAB PO SCH (09:34)
[2021-10-05] MEDS: Potassium Chloride 20 MEQ TAB PO SCH (09:34)
[2021-10-05] MEDS: predniSONE 20 MG TAB PO SCH (09:34)
[2021-10-05] MEDS: Azithromycin 250 MG TAB PO SCH (09:34)
[2021-10-05] MEDS: Calcium Carbonate 500 MG ChewTAB PO SCH (09:35)
[2021-10-05] MEDS: Carvedilol 3.125 MG TAB PO SCH ×2 (09:35→17:15)
[2021-10-05] MEDS: Enoxaparin Sodium 40 MG/0.4 ML SYRINGE SC SCH (09:35)
[2021-10-05] MEDS: Amiodarone 200 MG TAB PO SCH ×2 (09:35→20:29)
[2021-10-05] MEDS: Levothyroxine 150 MCG TAB PO SCH (09:35)
[2021-10-05 12:55] LABS: Strep pneumo Urine Ag NEGATIVE (NEGATIVE)
[2021-10-05] MEDS ORDERED: Furosemide 20 MG/2 ML VIAL SLOW IVP SCH (17:00)
[2021-10-05] MEDS: HumaLOG 300 UNITS/3 ML VIAL SC PRN ×2 (17:16→22:59)
[2021-10-05] MEDS: Terazosin HCl 5 MG CAP PO SCH (20:29)
[2021-10-05] MEDS: Famotidine 20 MG TAB PO SCH (20:29)
[2021-10-05] MEDS: Atorvastatin Calcium 40 MG TAB PO SCH (20:29)
[2021-10-05] MEDS: Acetaminophen 325 MG TAB PO PRN (22:58)
[2021-10-06] MEDS: cefTRIAXone\\ROCEPHIN 1 GM in Sodium Chloride 0.9% 100 ML IVPB SCH (01:42)
[2021-10-06 05:52] LABS: #Eosinphils 0.1 thou/uL (0.0-0.7); #Lymphocytes 0.9 thou/uL (1.20-3.40); #Monocytes 0.9 thou/uL (0.11-0.59); #Neutrophils 16.4 thou/uL (1.40-6.50); %Basophils 0.1 % (0.0-1.0); %Eosinophils 0.3 % (0.0-10.0); %Lymphocytes 5.1 % (21.0-51.0); %Neutrophils 89.5 % (42.0-75.0); Hemoglobin 13.3 g/dL (14.0-18.0); Mean Corpuscular Hemoglobin 33.2 pg (27.0-31.0); Mean Platelet Volume 7.1 fL (7.4-10.4); Platelet Count 187 thou/uL (130-400); RBC Distribution Width 11.9 % (11.5-14.5); Red Blood Cell (RBC) Count 4.01 mill/uL (4.70-6.10); White Blood Cell (WBC) Count 18.3 thou/uL (4.8-10.8)
[2021-10-06 06:11] LABS: Anion Gap 12 mmol/L (10-20); BUN (Urea Nitrogen) 31 mg/dL (8.4-25.7); Calc. Creatinine Clearance 91 mL/min (70-130); Carbon Dioxide 27 mmol/L (23-31); Chloride 100 mmol/L (98-107); Glucose 185 mg/dL (83-110); Sodium 135 mmol/L (136-145)
[2021-10-06] MEDS: Levothyroxine 150 MCG TAB PO SCH (06:28)
[2021-10-06] MEDS ORDERED: Menthol/Zinc Oxide 283 GM BOT TOP PRN (07:33)
[2021-10-06] MEDS: predniSONE 20 MG TAB PO SCH (08:11)
[2021-10-06] MEDS: Famotidine 20 MG TAB PO SCH ×2 (08:11→21:24)
[2021-10-06] MEDS: Aspirin Chewable 81 MG TAB PO SCH (08:12)
[2021-10-06] MEDS: Calcium Carbonate 500 MG ChewTAB PO SCH (08:12)
[2021-10-06] MEDS: Amlodipine 10 MG TAB PO SCH (08:12)
[2021-10-06] MEDS: Amiodarone 200 MG TAB PO SCH ×2 (08:12→09:13)
[2021-10-06] MEDS: Carvedilol 3.125 MG TAB PO SCH ×2 (08:12→17:15)
[2021-10-06] MEDS: Azithromycin 250 MG TAB PO SCH (08:12)
[2021-10-06] MEDS: Potassium Chloride 20 MEQ TAB PO SCH (08:12)
[2021-10-06] MEDS: Enoxaparin Sodium 40 MG/0.4 ML SYRINGE SC SCH (08:13)
[2021-10-06] MEDS: Furosemide 40 MG/4 ML VIAL SLOW IVP SCH (08:13)
[2021-10-06] MEDS: Lisinopril 10 MG TAB PO SCH (09:56)
[2021-10-06] MEDS: HumaLOG 300 UNITS/3 ML VIAL SC PRN ×2 (11:17→17:15)
[2021-10-06] MEDS: Terazosin HCl 5 MG CAP PO SCH (21:24)
[2021-10-06] MEDS: Atorvastatin Calcium 40 MG TAB PO SCH (21:24)
[2021-10-07] MEDS: cefTRIAXone\\ROCEPHIN 1 GM in Sodium Chloride 0.9% 100 ML IVPB SCH (01:17)
[2021-10-07] MEDS: Acetaminophen 325 MG TAB PO PRN ×2 (06:06→18:02)
[2021-10-07] MEDS: Levothyroxine 150 MCG TAB PO SCH (06:07)
[2021-10-07 08:16] LABS: #Eosinphils 0.1 thou/uL (0.0-0.7); #Lymphocytes 1.2 thou/uL (1.20-3.40); #Monocytes 0.6 thou/uL (0.11-0.59); #Neutrophils 16.3 thou/uL (1.40-6.50); %Eosinophils 0.3 % (0.0-10.0); %Lymphocytes 6.5 % (21.0-51.0); %Monocytes 3.3 % (0.0-10.0); %Neutrophils 89.8 % (42.0-75.0); Mean Corpuscular HGB CONC 33.8 g/dL (32.0-36.0); Mean Corpuscular Hemoglobin 33.4 pg (27.0-31.0); Mean Corpuscular Volume 98.7 fL (78.0-98.0); Mean Platelet Volume 7.4 fL (7.4-10.4); Platelet Count 164 thou/uL (130-400); RBC Distribution Width 11.8 % (11.5-14.5); Red Blood Cell (RBC) Count 3.91 mill/uL (4.70-6.10); White Blood Cell (WBC) Count 18.2 thou/uL (4.8-10.8)
[2021-10-07 08:17] LABS: Anion Gap 10 mmol/L (10-20); BUN (Urea Nitrogen) 33 mg/dL (8.4-25.7); Calc. Creatinine Clearance 111 mL/min (70-130); Calcium 8.5 mg/dL (7.8-10.44); Carbon Dioxide 29 mmol/L (23-31); Chloride 101 mmol/L (98-107); Glucose 142 mg/dL (83-110); Potassium 3.6 mmol/L (3.5-5.1); Sodium 136 mmol/L (136-145)
[2021-10-07] MEDS: Famotidine 20 MG TAB PO SCH ×2 (09:04→21:19)
[2021-10-07] MEDS: Amlodipine 10 MG TAB PO SCH (09:04)
[2021-10-07] MEDS: predniSONE 20 MG TAB PO SCH (09:04)
[2021-10-07] MEDS: Amiodarone 200 MG TAB PO SCH (09:04)
[2021-10-07] MEDS: Carvedilol 3.125 MG TAB PO SCH ×2 (09:04→17:50)
[2021-10-07] MEDS: Lisinopril 10 MG TAB PO SCH (09:05)
[2021-10-07] MEDS: Potassium Chloride 20 MEQ TAB PO SCH (09:05)
[2021-10-07] MEDS: Calcium Carbonate 500 MG ChewTAB PO SCH (09:05)
[2021-10-07] MEDS: Furosemide 40 MG/4 ML VIAL SLOW IVP SCH (09:05)
[2021-10-07] MEDS: Enoxaparin Sodium 40 MG/0.4 ML SYRINGE SC SCH (09:05)
[2021-10-07] MEDS: Aspirin Chewable 81 MG TAB PO SCH (09:05)
[2021-10-07] MEDS: Azithromycin 500 MG in Sodium Chloride 0.9% 250 ML 250 ML IVPB SCH (16:04)
[2021-10-07] MEDS: methylPREDNISolone Sod Succ/PF 125 MG/2 ML VIAL IVP SCH (17:50)
[2021-10-07] MEDS: HumaLOG 300 UNITS/3 ML VIAL SC PRN (17:50)
[2021-10-07] MEDS: Terazosin HCl 5 MG CAP PO SCH (21:19)
[2021-10-07] MEDS: Ascorbic Acid 500 mg Chewable Tablet PO SCH (21:19)
[2021-10-07] MEDS: Atorvastatin Calcium 40 MG TAB PO SCH (21:19)
[2021-10-07] MEDS ORDERED: MEROPENEM 1 GM/50 ML 1 GM in Premix Bag 1 BAG IVPB SCH (22:00)
[2021-10-07] MEDS ORDERED: Meropenem 1 GM in Sodium Chloride 0.9% 100 ML IVPB SCH (22:00)
[2021-10-08] MEDS: methylPREDNISolone Sod Succ/PF 125 MG/2 ML VIAL IVP SCH ×4 (01:46→17:37)
[2021-10-08] MEDS: cefTRIAXone\\ROCEPHIN 1 GM in Sodium Chloride 0.9% 100 ML IVPB SCH (01:46)
[2021-10-08 05:01] LABS: #Basophils 0.1 thou/uL (0.0-0.2); #Lymphocytes 0.5 thou/uL (1.20-3.40); #Monocytes 0.1 thou/uL (0.11-0.59); #Neutrophils 12.8 thou/uL (1.40-6.50); %Basophils 0.5 % (0.0-1.0); %Eosinophils 0.1 % (0.0-10.0); %Lymphocytes 3.8 % (21.0-51.0); %Monocytes 0.9 % (0.0-10.0); %Neutrophils 94.7 % (42.0-75.0); Hemoglobin 13.3 g/dL (14.0-18.0); Mean Corpuscular HGB CONC 33.5 g/dL (32.0-36.0); Mean Corpuscular Hemoglobin 33.4 pg (27.0-31.0); Mean Corpuscular Volume 99.9 fL (78.0-98.0); Mean Platelet Volume 7.9 fL (7.4-10.4); Platelet Count 135 thou/uL (130-400); RBC Distribution Width 11.8 % (11.5-14.5); Red Blood Cell (RBC) Count 3.96 mill/uL (4.70-6.10); White Blood Cell (WBC) Count 13.5 thou/uL (4.8-10.8)
[2021-10-08 05:20] LABS: Anion Gap 12 mmol/L (10-20); BUN (Urea Nitrogen) 33 mg/dL (8.4-25.7); Calc. Creatinine Clearance 112 mL/min (70-130); Calcium 8.8 mg/dL (7.8-10.44); Carbon Dioxide 25 mmol/L (23-31); Chloride 101 mmol/L (98-107); Glucose 225 mg/dL (83-110); Potassium 4.1 mmol/L (3.5-5.1); Sodium 134 mmol/L (136-145)
[2021-10-08] MEDS: MEROPENEM 1 GM/50 ML 1 GM in Premix Bag 1 BAG IVPB SCH ×3 (06:26→21:27)
[2021-10-08] MEDS: Levothyroxine 150 MCG TAB PO SCH (06:27)
[2021-10-08] MEDS: HumaLOG 300 UNITS/3 ML VIAL SC PRN ×4 (06:30→21:19)
[2021-10-08] MEDS ORDERED: Calcium Carbonate 500 MG ChewTAB PO PRN (06:47)
[2021-10-08] MEDS ORDERED: Metolazone 5 MG TAB PO SCH (07:00)
[2021-10-08] MEDS: Famotidine 20 MG TAB PO SCH ×2 (08:31→21:10)
[2021-10-08] MEDS: Amiodarone 200 MG TAB PO SCH (08:31)
[2021-10-08] MEDS: Ascorbic Acid 500 mg Chewable Tablet PO SCH ×2 (08:31→21:10)
[2021-10-08] MEDS: Cholecalciferol 1,000 UNITS (25 MCG) TAB PO SCH (08:32)
[2021-10-08] MEDS: Potassium Chloride 20 MEQ TAB PO SCH (08:32)
[2021-10-08] MEDS: Enoxaparin Sodium 40 MG/0.4 ML SYRINGE SC SCH (08:32)
[2021-10-08] MEDS: Carvedilol 3.125 MG TAB PO SCH ×2 (08:32→17:38)
[2021-10-08] MEDS: Amlodipine 10 MG TAB PO SCH (08:32)
[2021-10-08] MEDS: Furosemide 40 MG/4 ML VIAL SLOW IVP SCH (08:32)
[2021-10-08] MEDS: Lisinopril 10 MG TAB PO SCH (08:32)
[2021-10-08] MEDS: Aspirin Chewable 81 MG TAB PO SCH (08:33)
[2021-10-08] MEDS: Azithromycin 500 MG in Sodium Chloride 0.9% 250 ML 250 ML IVPB SCH (13:16)
[2021-10-08] MEDS: Atorvastatin Calcium 40 MG TAB PO SCH (21:10)
[2021-10-08] MEDS: Terazosin HCl 5 MG CAP PO SCH (21:24)
[2021-10-09] MEDS: methylPREDNISolone Sod Succ/PF 125 MG/2 ML VIAL IVP SCH ×4 (00:12→17:14)
[2021-10-09] MEDS: cefTRIAXone\\ROCEPHIN 1 GM in Sodium Chloride 0.9% 100 ML IVPB SCH (00:12)
[2021-10-09] MEDS: Acetaminophen 325 MG TAB PO PRN ×2 (01:19→21:06)
[2021-10-09 03:54] LABS: #Lymphocytes 0.6 thou/uL (1.20-3.40); #Monocytes 0.4 thou/uL (0.11-0.59); %Eosinophils 0.1 % (0.0-10.0); %Lymphocytes 4.3 % (21.0-51.0); %Monocytes 2.7 % (0.0-10.0); %Neutrophils 92.9 % (42.0-75.0); Hemoglobin 12.8 g/dL (14.0-18.0); Mean Corpuscular HGB CONC 34.1 g/dL (32.0-36.0); Mean Corpuscular Hemoglobin 33.8 pg (27.0-31.0); Platelet Count 138 thou/uL (130-400); RBC Distribution Width 11.7 % (11.5-14.5); Red Blood Cell (RBC) Count 3.78 mill/uL (4.70-6.10); White Blood Cell (WBC) Count 15.1 thou/uL (4.8-10.8)
[2021-10-09 04:23] LABS: Anion Gap 11 mmol/L (10-20); BUN (Urea Nitrogen) 40 mg/dL (8.4-25.7); Calc. Creatinine Clearance 100 mL/min (70-130); Calcium 8.6 mg/dL (7.8-10.44); Carbon Dioxide 28 mmol/L (23-31); Chloride 100 mmol/L (98-107); Glucose 221 mg/dL (83-110); Potassium 3.6 mmol/L (3.5-5.1); Sodium 135 mmol/L (136-145)
[2021-10-09] MEDS: Levothyroxine 150 MCG TAB PO SCH (05:40)
[2021-10-09] MEDS: MEROPENEM 1 GM/50 ML 1 GM in Premix Bag 1 BAG IVPB SCH ×3 (05:40→20:58)
[2021-10-09] MEDS: HumaLOG 300 UNITS/3 ML VIAL SC PRN ×3 (05:41→17:18)
[2021-10-09] MEDS: Fluticasone Propionate Nasal Spray 16 gm Bottle NASAL SCH (08:55)
[2021-10-09] MEDS: Cholecalciferol 1,000 UNITS (25 MCG) TAB PO SCH (08:56)
[2021-10-09] MEDS: Furosemide 40 MG/4 ML VIAL SLOW IVP SCH (08:56)
[2021-10-09] MEDS: Enoxaparin Sodium 40 MG/0.4 ML SYRINGE SC SCH (08:56)
[2021-10-09] MEDS: Lisinopril 10 MG TAB PO SCH (08:57)
[2021-10-09] MEDS: Amlodipine 10 MG TAB PO SCH (08:57)
[2021-10-09] MEDS: Aspirin Chewable 81 MG TAB PO SCH (08:57)
[2021-10-09] MEDS: Amiodarone 200 MG TAB PO SCH (08:58)
[2021-10-09] MEDS: Potassium Chloride 20 MEQ TAB PO SCH (08:58)
[2021-10-09] MEDS: Carvedilol 3.125 MG TAB PO SCH ×2 (08:58→17:14)
[2021-10-09] MEDS: Metolazone 5 MG TAB PO SCH (08:58)
[2021-10-09] MEDS: Ascorbic Acid 500 mg Chewable Tablet PO SCH ×2 (08:58→20:51)
[2021-10-09] MEDS: Loratadine 10 MG TAB PO SCH (08:58)
[2021-10-09] MEDS: Famotidine 20 MG TAB PO SCH ×2 (08:58→20:52)
[2021-10-09] MEDS ORDERED: Lantus 1000 UNITS/10 ML VIAL SC SCH (09:00)
[2021-10-09] MEDS ORDERED: Iopamidol-370 76% 500 ML 1 ML ONE (10:32)
[2021-10-09] MEDS: Azithromycin 500 MG in Sodium Chloride 0.9% 250 ML 250 ML IVPB SCH (15:18)
[2021-10-09 17:01] LABS: Syphilis Antibody Nonreactive (Nonreactive); Syphilis Antibody Index 0.14 S/CO (<1.00 Non-Reactive)
[2021-10-09] MEDS: Terazosin HCl 5 MG CAP PO SCH (20:51)
[2021-10-09] MEDS: Atorvastatin Calcium 40 MG TAB PO SCH (20:51)
[2021-10-10] MEDS: methylPREDNISolone Sod Succ/PF 125 MG/2 ML VIAL IVP SCH ×2 (00:08→05:21)
[2021-10-10 03:16] LABS: HIV (1/2) Antibody/Antigen Non-Reactive (NonReactive); HIV 1/2 INDEX 0.09 S/CO (<1.00)
[2021-10-10] MEDS: Levothyroxine 150 MCG TAB PO SCH (05:21)
[2021-10-10] MEDS: MEROPENEM 1 GM/50 ML 1 GM in Premix Bag 1 BAG IVPB SCH (05:22)
[2021-10-10] MEDS: Acetaminophen 325 MG TAB PO PRN ×2 (05:25→22:11)
[2021-10-10] MEDS: HumaLOG 300 UNITS/3 ML VIAL SC PRN ×4 (05:26→22:27)
[2021-10-10 05:44] LABS: #Lymphocytes 0.4 thou/uL (1.20-3.40); #Monocytes 0.5 thou/uL (0.11-0.59); %Eosinophils 0.2 % (0.0-10.0); %Lymphocytes 3.4 % (21.0-51.0); %Monocytes 3.5 % (0.0-10.0); Hemoglobin 12.8 g/dL (14.0-18.0); Mean Corpuscular HGB CONC 33.6 g/dL (32.0-36.0); Mean Corpuscular Hemoglobin 33.1 pg (27.0-31.0); Mean Corpuscular Volume 98.5 fL (78.0-98.0); Mean Platelet Volume 8.3 fL (7.4-10.4); Platelet Count 136 thou/uL (130-400); RBC Distribution Width 11.7 % (11.5-14.5); Red Blood Cell (RBC) Count 3.85 mill/uL (4.70-6.10); White Blood Cell (WBC) Count 12.9 thou/uL (4.8-10.8)
[2021-10-10 06:02] LABS: Anion Gap 13 mmol/L (10-20); BUN (Urea Nitrogen) 50 mg/dL (8.4-25.7); Calc. Creatinine Clearance 81 mL/min (70-130); Calcium 8.5 mg/dL (7.8-10.44); Carbon Dioxide 26 mmol/L (23-31); Chloride 97 mmol/L (98-107); Glucose 257 mg/dL (83-110); Potassium 3.2 mmol/L (3.5-5.1); Sodium 133 mmol/L (136-145)
[2021-10-10] MEDS ORDERED: Lantus 1000 UNITS/10 ML VIAL SC SCH (06:52)
[2021-10-10] MEDS ORDERED: Potassium Chloride 20 MEQ TAB PO SCH (07:00)
[2021-10-10] MEDS: Carvedilol 3.125 MG TAB PO SCH ×2 (08:08→17:30)
[2021-10-10] MEDS: Lisinopril 10 MG TAB PO SCH (08:08)
[2021-10-10] MEDS: Potassium Chloride 20 MEQ TAB PO SCH (08:08)
[2021-10-10] MEDS: Enoxaparin Sodium 40 MG/0.4 ML SYRINGE SC SCH (08:09)
[2021-10-10] MEDS: Loratadine 10 MG TAB PO SCH (08:09)
[2021-10-10] MEDS: Famotidine 20 MG TAB PO SCH ×2 (08:09→22:11)
[2021-10-10] MEDS: Aspirin Chewable 81 MG TAB PO SCH (08:09)
[2021-10-10] MEDS: Ascorbic Acid 500 mg Chewable Tablet PO SCH ×2 (08:09→22:11)
[2021-10-10] MEDS: Amiodarone 200 MG TAB PO SCH (08:09)
[2021-10-10] MEDS: Amlodipine 10 MG TAB PO SCH (08:09)
[2021-10-10] MEDS: Cholecalciferol 1,000 UNITS (25 MCG) TAB PO SCH (08:09)
[2021-10-10] MEDS: Metolazone 5 MG TAB PO SCH (08:09)
[2021-10-10] MEDS: Furosemide 40 MG/4 ML VIAL SLOW IVP SCH (08:10)
[2021-10-10] MEDS: Fluticasone Propionate Nasal Spray 16 gm Bottle NASAL SCH (08:10)
[2021-10-10 08:16] LABS: % Free PSA 4.3 % (.)
[2021-10-10] MEDS: guaiFENesin ER 600 MG TAB PO SCH ×2 (09:54→22:11)
[2021-10-10] MEDS ORDERED: guaiFENesin ER 600 MG TAB PO SCH (21:00)
[2021-10-10] MEDS: Terazosin HCl 5 MG CAP PO SCH (22:11)
[2021-10-10] MEDS: Atorvastatin Calcium 40 MG TAB PO SCH (22:11)
[2021-10-11 03:56] LABS: #Lymphocytes 0.6 thou/uL (1.20-3.40); #Neutrophils 14.7 thou/uL (1.40-6.50); %Eosinophils 0.2 % (0.0-10.0); %Lymphocytes 3.4 % (21.0-51.0); %Neutrophils 90.4 % (42.0-75.0); Hemoglobin 13.5 g/dL (14.0-18.0); Mean Corpuscular HGB CONC 34.1 g/dL (32.0-36.0); Mean Corpuscular Hemoglobin 33.3 pg (27.0-31.0); Mean Corpuscular Volume 97.7 fL (78.0-98.0); Mean Platelet Volume 8.5 fL (7.4-10.4); Platelet Count 140 thou/uL (130-400); RBC Distribution Width 11.7 % (11.5-14.5); Red Blood Cell (RBC) Count 4.06 mill/uL (4.70-6.10); White Blood Cell (WBC) Count 16.3 thou/uL (4.8-10.8)
[2021-10-11 04:23] LABS: Anion Gap 11 mmol/L (10-20); BUN (Urea Nitrogen) 61 mg/dL (8.4-25.7); Calc. Creatinine Clearance 81 mL/min (70-130); Calcium 8.7 mg/dL (7.8-10.44); Carbon Dioxide 30 mmol/L (23-31); Chloride 97 mmol/L (98-107); Glucose 170 mg/dL (83-110); Potassium 3.1 mmol/L (3.5-5.1); Sodium 135 mmol/L (136-145)
[2021-10-11] MEDS: Levothyroxine 150 MCG TAB PO SCH (05:14)
[2021-10-11] MEDS: HumaLOG 300 UNITS/3 ML VIAL SC PRN ×3 (05:15→21:03)
[2021-10-11] MEDS ORDERED: Potassium Chloride 20 MEQ TAB PO SCH (06:00)
[2021-10-11] MEDS ORDERED: predniSONE 20 MG TAB PO SCH (08:00)
[2021-10-11] MEDS: Fluticasone Propionate Nasal Spray 16 gm Bottle NASAL SCH (09:55)
[2021-10-11] MEDS: Metamucil PACK PO SCH (09:56)
[2021-10-11] MEDS: Enoxaparin Sodium 40 MG/0.4 ML SYRINGE SC SCH (09:56)
[2021-10-11] MEDS: Furosemide 40 MG/4 ML VIAL SLOW IVP SCH (09:57)
[2021-10-11] MEDS: Metolazone 5 MG TAB PO SCH (09:58)
[2021-10-11] MEDS: Cholecalciferol 1,000 UNITS (25 MCG) TAB PO SCH (09:58)
[2021-10-11] MEDS: Carvedilol 3.125 MG TAB PO SCH ×2 (09:59→18:08)
[2021-10-11] MEDS: Potassium Chloride 20 MEQ TAB PO SCH (09:59)
[2021-10-11] MEDS: Amiodarone 200 MG TAB PO SCH (09:59)
[2021-10-11] MEDS: Amlodipine 10 MG TAB PO SCH (10:01)
[2021-10-11] MEDS: Aspirin Chewable 81 MG TAB PO SCH (10:01)
[2021-10-11] MEDS: Lisinopril 10 MG TAB PO SCH (10:01)
[2021-10-11] MEDS: Famotidine 20 MG TAB PO SCH ×2 (10:02→20:56)
[2021-10-11] MEDS: Loratadine 10 MG TAB PO SCH (10:02)
[2021-10-11] MEDS: guaiFENesin ER 600 MG TAB PO SCH ×2 (10:03→20:56)
[2021-10-11] MEDS: Ascorbic Acid 500 mg Chewable Tablet PO SCH ×2 (10:03→20:56)
[2021-10-11] MEDS: predniSONE 20 MG TAB PO SCH (10:04)
[2021-10-11] MEDS: Lantus 1000 UNITS/10 ML VIAL SC SCH (10:14)
[2021-10-11] MEDS: Terazosin HCl 5 MG CAP PO SCH (20:55)
[2021-10-11] MEDS: Atorvastatin Calcium 40 MG TAB PO SCH (20:56)
[2021-10-11 21:37] LABS: QuantiFERON-TB Gold Plus Negative (Negative)
[2021-10-12] MEDS: Levothyroxine 150 MCG TAB PO SCH (05:04)
[2021-10-12 05:27] LABS: Anion Gap 11 mmol/L (10-20); BUN (Urea Nitrogen) 53 mg/dL (8.4-25.7); Calc. Creatinine Clearance 93 mL/min (70-130); Calcium 8.5 mg/dL (7.8-10.44); Carbon Dioxide 30 mmol/L (23-31); Chloride 98 mmol/L (98-107); Glucose 119 mg/dL (83-110); Potassium 3.6 mmol/L (3.5-5.1); Sodium 135 mmol/L (136-145)
[2021-10-12] MEDS: Cholecalciferol 1,000 UNITS (25 MCG) TAB PO SCH (09:13)
[2021-10-12] MEDS: Loratadine 10 MG TAB PO SCH (09:14)
[2021-10-12] MEDS: guaiFENesin ER 600 MG TAB PO SCH ×2 (09:14→20:33)
[2021-10-12] MEDS: Lisinopril 10 MG TAB PO SCH (09:14)
[2021-10-12] MEDS: Amiodarone 200 MG TAB PO SCH (09:14)
[2021-10-12] MEDS: Famotidine 20 MG TAB PO SCH ×2 (09:14→20:33)
[2021-10-12] MEDS: Carvedilol 3.125 MG TAB PO SCH ×2 (09:14→17:16)
[2021-10-12] MEDS: Ascorbic Acid 500 mg Chewable Tablet PO SCH ×2 (09:14→20:33)
[2021-10-12] MEDS: Amlodipine 10 MG TAB PO SCH (09:14)
[2021-10-12] MEDS: Metolazone 5 MG TAB PO SCH (09:14)
[2021-10-12] MEDS: Metamucil PACK PO SCH (09:15)
[2021-10-12] MEDS: Furosemide 40 MG/4 ML VIAL SLOW IVP SCH (09:15)
[2021-10-12] MEDS: predniSONE 20 MG TAB PO SCH (09:15)
[2021-10-12] MEDS: Enoxaparin Sodium 40 MG/0.4 ML SYRINGE SC SCH (09:15)
[2021-10-12] MEDS: Fluticasone Propionate Nasal Spray 16 gm Bottle NASAL SCH (09:15)
[2021-10-12] MEDS: Aspirin Chewable 81 MG TAB PO SCH (09:15)
[2021-10-12] MEDS: Potassium Chloride 20 MEQ TAB PO SCH (09:15)
[2021-10-12] MEDS: Lantus 1000 UNITS/10 ML VIAL SC SCH (09:16)
[2021-10-12] MEDS: Acetaminophen 325 MG TAB PO PRN (10:37)
[2021-10-12] MEDS: Terazosin HCl 5 MG CAP PO SCH (20:32)
[2021-10-12] MEDS: Atorvastatin Calcium 40 MG TAB PO SCH (20:33)
[2021-10-13 04:05] LABS: Anion Gap 10 mmol/L (10-20); BUN (Urea Nitrogen) 52 mg/dL (8.4-25.7); Calc. Creatinine Clearance 83 mL/min (70-130); Calcium 8.6 mg/dL (7.8-10.44); Carbon Dioxide 32 mmol/L (23-31); Chloride 98 mmol/L (98-107); Glucose 121 mg/dL (83-110); Potassium 3.6 mmol/L (3.5-5.1); Sodium 136 mmol/L (136-145)
[2021-10-13] MEDS: Levothyroxine 150 MCG TAB PO SCH (06:34)
[2021-10-13] MEDS: Amlodipine 10 MG TAB PO SCH (08:52)
[2021-10-13] MEDS: Aspirin Chewable 81 MG TAB PO SCH (08:53)
[2021-10-13] MEDS: Potassium Chloride 20 MEQ TAB PO SCH (08:53)
[2021-10-13] MEDS: Cholecalciferol 1,000 UNITS (25 MCG) TAB PO SCH (08:53)
[2021-10-13] MEDS: Ascorbic Acid 500 mg Chewable Tablet PO SCH ×2 (08:53→20:09)
[2021-10-13] MEDS: Metolazone 5 MG TAB PO SCH (08:53)
[2021-10-13] MEDS: predniSONE 20 MG TAB PO SCH (08:55)
[2021-10-13] MEDS: Lisinopril 10 MG TAB PO SCH (08:55)
[2021-10-13] MEDS: Amiodarone 200 MG TAB PO SCH (08:55)
[2021-10-13] MEDS: Furosemide 40 MG/4 ML VIAL SLOW IVP SCH (08:55)
[2021-10-13] MEDS: Loratadine 10 MG TAB PO SCH (08:55)
[2021-10-13] MEDS: Carvedilol 3.125 MG TAB PO SCH ×2 (08:55→17:33)
[2021-10-13] MEDS: Famotidine 20 MG TAB PO SCH ×2 (08:55→20:09)
[2021-10-13] MEDS: Metamucil PACK PO SCH (08:55)
[2021-10-13] MEDS: Fluticasone Propionate Nasal Spray 16 gm Bottle NASAL SCH (08:55)
[2021-10-13] MEDS: guaiFENesin ER 600 MG TAB PO SCH ×2 (08:55→20:09)
[2021-10-13] MEDS: Lantus 1000 UNITS/10 ML VIAL SC SCH (08:56)
[2021-10-13] MEDS: Enoxaparin Sodium 40 MG/0.4 ML SYRINGE SC SCH (08:56)
[2021-10-13] MEDS ORDERED: metFORMIN XR 500 MG TAB PO SCH (09:15)
[2021-10-13 10:32] LABS: Hemoglobin 14.5 g/dL (14.0-18.0); Mean Corpuscular Hemoglobin 33.4 pg (27.0-31.0); Mean Corpuscular Volume 98.2 fL (78.0-98.0); Platelet Count 122 thou/uL (130-400); RBC Distribution Width 12.1 % (11.5-14.5); Red Blood Cell (RBC) Count 4.33 mill/uL (4.70-6.10); White Blood Cell (WBC) Count 20.3 thou/uL (4.8-10.8)
[2021-10-13 11:34] LABS: Band 1 % (5-11); Eosinophils 1 % (0-10); Lymphocytes 5 % (21-51); MDiff Complete? YES; Macrocytosis SLIGHT = 6-15 cells (100X) (0-5/hpf); Monocytes 8 % (0-10); Neutrophil 85 % (42-75); Platelet Morphology Comment Appears Decreased; Polychromasia SLIGHT = 2-3 cells (100X) (0-2/hpf)
[2021-10-13 12:03] LABS: SARS-CoV-2 PCR by NAA Not Detected (NotDetected)
[2021-10-13] MEDS: HumaLOG 300 UNITS/3 ML VIAL SC PRN (17:33)
[2021-10-13] MEDS: Atorvastatin Calcium 40 MG TAB PO SCH (20:09)
[2021-10-13] MEDS: Terazosin HCl 5 MG CAP PO SCH (20:09)
[2021-10-13] MEDS: Acetaminophen 325 MG TAB PO PRN (20:15)
[2021-10-14 04:21] LABS: Anion Gap 12 mmol/L (10-20); BUN (Urea Nitrogen) 46 mg/dL (8.4-25.7); Calc. Creatinine Clearance 82 mL/min (70-130); Calcium 8.7 mg/dL (7.8-10.44); Carbon Dioxide 28 mmol/L (23-31); Chloride 98 mmol/L (98-107); Glucose 184 mg/dL (83-110); Potassium 3.8 mmol/L (3.5-5.1); Sodium 134 mmol/L (136-145)
[2021-10-14] MEDS ORDERED: Sodium Chloride 0.65% Nasal 44 ML BOT EA NARE PRN (06:20)
[2021-10-14] MEDS: Levothyroxine 150 MCG TAB PO SCH (06:42)
[2021-10-14] MEDS: Potassium Chloride 20 MEQ TAB PO SCH (09:22)
[2021-10-14] MEDS: Carvedilol 3.125 MG TAB PO SCH ×2 (09:22→16:27)
[2021-10-14] MEDS: metFORMIN XR 500 MG TAB PO SCH (09:22)
[2021-10-14] MEDS: Lisinopril 10 MG TAB PO SCH (09:23)
[2021-10-14] MEDS: Furosemide 40 MG/4 ML VIAL SLOW IVP SCH (09:23)
[2021-10-14] MEDS: Amlodipine 10 MG TAB PO SCH (09:23)
[2021-10-14] MEDS: Ascorbic Acid 500 mg Chewable Tablet PO SCH ×2 (09:23→21:58)
[2021-10-14] MEDS: guaiFENesin ER 600 MG TAB PO SCH ×2 (09:23→21:56)
[2021-10-14] MEDS: Famotidine 20 MG TAB PO SCH ×2 (09:23→21:57)
[2021-10-14] MEDS: Metolazone 5 MG TAB PO SCH (09:23)
[2021-10-14] MEDS: methylPREDNISolone Sod Succ/PF 125 MG/2 ML VIAL IVP SCH ×2 (09:23→21:58)
[2021-10-14] MEDS: Cholecalciferol 1,000 UNITS (25 MCG) TAB PO SCH (09:23)
[2021-10-14] MEDS: Loratadine 10 MG TAB PO SCH (09:23)
[2021-10-14] MEDS: Aspirin Chewable 81 MG TAB PO SCH (09:23)
[2021-10-14] MEDS: Lantus 1000 UNITS/10 ML VIAL SC SCH (09:23)
[2021-10-14] MEDS: Enoxaparin Sodium 40 MG/0.4 ML SYRINGE SC SCH (09:24)
[2021-10-14] MEDS: Fluticasone Propionate Nasal Spray 16 gm Bottle NASAL SCH (09:24)
[2021-10-14] MEDS: Metamucil PACK PO SCH (09:24)
[2021-10-14] MEDS: predniSONE 20 MG TAB PO SCH (10:05)
[2021-10-14] MEDS: HumaLOG 300 UNITS/3 ML VIAL SC PRN (11:54)
[2021-10-14] MEDS ORDERED: methylPREDNISolone Sod Succ 40 MG VIAL IVP SCH (12:00)
[2021-10-14] MEDS ORDERED: Spironolactone 25 MG TAB PO SCH (14:30)
[2021-10-14] MEDS: Terazosin HCl 5 MG CAP PO SCH (21:57)
[2021-10-14] MEDS: Atorvastatin Calcium 40 MG TAB PO SCH (21:57)
[2021-10-14] MEDS: Acetaminophen 325 MG TAB PO PRN (21:57)
[2021-10-15 04:19] LABS: #Eosinphils 0.1 thou/uL (0.0-0.7); #Lymphocytes 0.8 thou/uL (1.20-3.40); #Monocytes 0.3 thou/uL (0.11-0.59); #Neutrophils 14.3 thou/uL (1.40-6.50); %Eosinophils 0.7 % (0.0-10.0); %Lymphocytes 4.8 % (21.0-51.0); %Monocytes 1.9 % (0.0-10.0); %Neutrophils 92.6 % (42.0-75.0); Hemoglobin 14.1 g/dL (14.0-18.0); Mean Corpuscular HGB CONC 33.5 g/dL (32.0-36.0); Mean Corpuscular Hemoglobin 33.3 pg (27.0-31.0); Mean Corpuscular Volume 99.3 fL (78.0-98.0); Mean Platelet Volume 8.9 fL (7.4-10.4); Platelet Count 122 thou/uL (130-400); RBC Distribution Width 12.1 % (11.5-14.5); Red Blood Cell (RBC) Count 4.24 mill/uL (4.70-6.10); White Blood Cell (WBC) Count 15.5 thou/uL (4.8-10.8)
[2021-10-15 04:42] LABS: Anion Gap 13 mmol/L (10-20); BUN (Urea Nitrogen) 48 mg/dL (8.4-25.7); Calc. Creatinine Clearance 77 mL/min (70-130); Calcium 8.8 mg/dL (7.8-10.44); Carbon Dioxide 28 mmol/L (23-31); Chloride 98 mmol/L (98-107); Glucose 216 mg/dL (83-110); Potassium 3.9 mmol/L (3.5-5.1); Sodium 135 mmol/L (136-145)
[2021-10-15] MEDS: Levothyroxine 150 MCG TAB PO SCH (06:17)
[2021-10-15] MEDS: HumaLOG 300 UNITS/3 ML VIAL SC PRN ×2 (06:18→21:09)
[2021-10-15] MEDS: Aspirin Chewable 81 MG TAB PO SCH (09:29)
[2021-10-15] MEDS: Metolazone 5 MG TAB PO SCH (09:29)
[2021-10-15] MEDS: Cholecalciferol 1,000 UNITS (25 MCG) TAB PO SCH (09:29)
[2021-10-15] MEDS: Famotidine 20 MG TAB PO SCH ×2 (09:29→21:08)
[2021-10-15] MEDS: Carvedilol 3.125 MG TAB PO SCH ×2 (09:30→18:54)
[2021-10-15] MEDS: Potassium Chloride 20 MEQ TAB PO SCH (09:30)
[2021-10-15] MEDS: Ascorbic Acid 500 mg Chewable Tablet PO SCH ×2 (09:30→21:09)
[2021-10-15] MEDS: metFORMIN XR 500 MG TAB PO SCH (09:30)
[2021-10-15] MEDS: guaiFENesin ER 600 MG TAB PO SCH ×2 (09:30→21:08)
[2021-10-15] MEDS: Lisinopril 10 MG TAB PO SCH (09:31)
[2021-10-15] MEDS: Lantus 1000 UNITS/10 ML VIAL SC SCH (09:31)
[2021-10-15] MEDS: Loratadine 10 MG TAB PO SCH (09:31)
[2021-10-15] MEDS: Amlodipine 10 MG TAB PO SCH (09:31)
[2021-10-15] MEDS: methylPREDNISolone Sod Succ/PF 125 MG/2 ML VIAL IVP SCH ×2 (09:31→21:09)
[2021-10-15] MEDS: Spironolactone 25 MG TAB PO SCH (09:31)
[2021-10-15] MEDS: Furosemide 40 MG/4 ML VIAL SLOW IVP SCH (09:31)
[2021-10-15] MEDS: Enoxaparin Sodium 40 MG/0.4 ML SYRINGE SC SCH (09:32)
[2021-10-15] MEDS: Metamucil PACK PO SCH (09:32)
[2021-10-15] MEDS: Fluticasone Propionate Nasal Spray 16 gm Bottle NASAL SCH (09:32)
[2021-10-15] MEDS: Terazosin HCl 5 MG CAP PO SCH (21:08)
[2021-10-15] MEDS: Atorvastatin Calcium 40 MG TAB PO SCH (21:08)
[2021-10-16 04:19] LABS: Hemoglobin 14.3 g/dL (14.0-18.0); Mean Corpuscular HGB CONC 33.6 g/dL (32.0-36.0); Mean Corpuscular Hemoglobin 33.3 pg (27.0-31.0); Mean Platelet Volume 8.6 fL (7.4-10.4); Platelet Count 134 thou/uL (130-400); RBC Distribution Width 12.2 % (11.5-14.5); Red Blood Cell (RBC) Count 4.29 mill/uL (4.70-6.10); White Blood Cell (WBC) Count 23.5 thou/uL (4.8-10.8)
[2021-10-16 04:29] LABS: Anion Gap 11 mmol/L (10-20); BUN (Urea Nitrogen) 48 mg/dL (8.4-25.7); Calc. Creatinine Clearance 85 mL/min (70-130); Calcium 8.8 mg/dL (7.8-10.44); Carbon Dioxide 26 mmol/L (23-31); Chloride 104 mmol/L (98-107); Glucose 164 mg/dL (83-110); Potassium 4.3 mmol/L (3.5-5.1); Sodium 137 mmol/L (136-145)
[2021-10-16] MEDS: Levothyroxine 150 MCG TAB PO SCH (05:33)
[2021-10-16] MEDS: HumaLOG 300 UNITS/3 ML VIAL SC PRN ×2 (05:34→17:26)
[2021-10-16 05:42] LABS: Lymphocytes 1 % (21-51); MDiff Complete? YES; Monocytes 4 % (0-10); Neutrophil 95 % (42-75)
[2021-10-16] MEDS: Carvedilol 3.125 MG TAB PO SCH ×2 (09:54→17:26)
[2021-10-16] MEDS: Spironolactone 25 MG TAB PO SCH (09:54)
[2021-10-16] MEDS: metFORMIN XR 500 MG TAB PO SCH (09:54)
[2021-10-16] MEDS: Potassium Chloride 20 MEQ TAB PO SCH (09:54)
[2021-10-16] MEDS: Famotidine 20 MG TAB PO SCH ×2 (09:54→20:47)
[2021-10-16] MEDS: Aspirin Chewable 81 MG TAB PO SCH (09:54)
[2021-10-16] MEDS: Metolazone 5 MG TAB PO SCH (09:54)
[2021-10-16] MEDS: Amlodipine 10 MG TAB PO SCH (09:54)
[2021-10-16] MEDS: Ascorbic Acid 500 mg Chewable Tablet PO SCH ×2 (09:55→20:48)
[2021-10-16] MEDS: guaiFENesin ER 600 MG TAB PO SCH ×2 (09:55→20:47)
[2021-10-16] MEDS: Loratadine 10 MG TAB PO SCH (09:55)
[2021-10-16] MEDS: Lantus 1000 UNITS/10 ML VIAL SC SCH (09:55)
[2021-10-16] MEDS: Furosemide 40 MG/4 ML VIAL SLOW IVP SCH (09:55)
[2021-10-16] MEDS: Cholecalciferol 1,000 UNITS (25 MCG) TAB PO SCH (09:55)
[2021-10-16] MEDS: Enoxaparin Sodium 40 MG/0.4 ML SYRINGE SC SCH (09:55)
[2021-10-16] MEDS: Lisinopril 10 MG TAB PO SCH (09:55)
[2021-10-16] MEDS: Metamucil PACK PO SCH (09:55)
[2021-10-16] MEDS: Fluticasone Propionate Nasal Spray 16 gm Bottle NASAL SCH (09:56)
[2021-10-16] MEDS: methylPREDNISolone Sod Succ/PF 125 MG/2 ML VIAL IVP SCH ×2 (09:56→20:47)
[2021-10-16 13:31] VITALS: BMI 30.2
[2021-10-16] MEDS: Acetaminophen 325 MG TAB PO PRN (17:30)
[2021-10-16] MEDS: Terazosin HCl 5 MG CAP PO SCH (20:47)
[2021-10-16] MEDS: Atorvastatin Calcium 40 MG TAB PO SCH (20:47)
[2021-10-16] MEDS: Aluminum & Magnesium Hydroxide 60 ML, Lidocaine 2% Viscous Solution 30 ML, diphenhydrAM... SSW PRN (22:18)
[2021-10-17] MEDS: Aluminum & Magnesium Hydroxide 60 ML, Lidocaine 2% Viscous Solution 30 ML, diphenhydrAM... SSW PRN ×2 (02:33→11:06)
[2021-10-17 03:47] LABS: #Eosinphils 0.1 thou/uL (0.0-0.7); #Lymphocytes 0.6 thou/uL (1.20-3.40); #Monocytes 0.6 thou/uL (0.11-0.59); #Neutrophils 15.5 thou/uL (1.40-6.50); %Basophils 0.1 % (0.0-1.0); %Eosinophils 0.6 % (0.0-10.0); %Lymphocytes 3.4 % (21.0-51.0); %Monocytes 3.6 % (0.0-10.0); %Neutrophils 92.3 % (42.0-75.0); Hemoglobin 14.1 g/dL (14.0-18.0); Mean Corpuscular HGB CONC 33.3 g/dL (32.0-36.0); Mean Corpuscular Hemoglobin 32.8 pg (27.0-31.0); Mean Corpuscular Volume 98.6 fL (78.0-98.0); Mean Platelet Volume 8.6 fL (7.4-10.4); Platelet Count 125 thou/uL (130-400); RBC Distribution Width 12.4 % (11.5-14.5); Red Blood Cell (RBC) Count 4.31 mill/uL (4.70-6.10); White Blood Cell (WBC) Count 16.8 thou/uL (4.8-10.8)
[2021-10-17 04:11] LABS: Anion Gap 11 mmol/L (10-20); BUN (Urea Nitrogen) 56 mg/dL (8.4-25.7); Calc. Creatinine Clearance 76 mL/min (70-130); Calcium 8.9 mg/dL (7.8-10.44); Carbon Dioxide 29 mmol/L (23-31); Chloride 100 mmol/L (98-107); Glucose 238 mg/dL (83-110); Potassium 4.7 mmol/L (3.5-5.1); Sodium 135 mmol/L (136-145)
[2021-10-17] MEDS: Levothyroxine 150 MCG TAB PO SCH (05:10)
[2021-10-17] MEDS: HumaLOG 300 UNITS/3 ML VIAL SC PRN ×4 (05:22→20:48)
[2021-10-17] MEDS: Cholecalciferol 1,000 UNITS (25 MCG) TAB PO SCH (08:25)
[2021-10-17] MEDS: Metolazone 5 MG TAB PO SCH (08:25)
[2021-10-17] MEDS: Aspirin Chewable 81 MG TAB PO SCH (08:25)
[2021-10-17] MEDS: Ascorbic Acid 500 mg Chewable Tablet PO SCH ×2 (08:25→20:44)
[2021-10-17] MEDS: Potassium Chloride 20 MEQ TAB PO SCH (08:25)
[2021-10-17] MEDS: metFORMIN XR 500 MG TAB PO SCH (08:25)
[2021-10-17] MEDS: Loratadine 10 MG TAB PO SCH (08:25)
[2021-10-17] MEDS: Metamucil PACK PO SCH (08:25)
[2021-10-17] MEDS: Spironolactone 25 MG TAB PO SCH (08:26)
[2021-10-17] MEDS: methylPREDNISolone Sod Succ/PF 125 MG/2 ML VIAL IVP SCH ×2 (08:26→20:45)
[2021-10-17] MEDS: guaiFENesin ER 600 MG TAB PO SCH ×2 (08:26→20:44)
[2021-10-17] MEDS: Enoxaparin Sodium 40 MG/0.4 ML SYRINGE SC SCH (08:26)
[2021-10-17] MEDS: Furosemide 40 MG/4 ML VIAL SLOW IVP SCH (08:26)
[2021-10-17] MEDS: Famotidine 20 MG TAB PO SCH ×2 (08:26→20:44)
[2021-10-17] MEDS: Lisinopril 10 MG TAB PO SCH (08:26)
[2021-10-17] MEDS: Carvedilol 3.125 MG TAB PO SCH ×2 (08:26→17:19)
[2021-10-17] MEDS: Amlodipine 10 MG TAB PO SCH (08:26)
[2021-10-17] MEDS: Lantus 1000 UNITS/10 ML VIAL SC SCH (08:27)
[2021-10-17] MEDS: Fluticasone Propionate Nasal Spray 16 gm Bottle NASAL SCH (08:27)
[2021-10-17] MEDS: Terazosin HCl 5 MG CAP PO SCH (20:44)
[2021-10-17] MEDS: Atorvastatin Calcium 40 MG TAB PO SCH (20:44)
[2021-10-17] MEDS: Acetaminophen 325 MG TAB PO PRN (20:44)
[2021-10-18 03:56] LABS: #Basophils 0.1 thou/uL (0.0-0.2); #Eosinphils 0.1 thou/uL (0.0-0.7); #Lymphocytes 0.5 thou/uL (1.20-3.40); #Monocytes 0.6 thou/uL (0.11-0.59); #Neutrophils 18.2 thou/uL (1.40-6.50); %Basophils 0.7 % (0.0-1.0); %Eosinophils 0.3 % (0.0-10.0); %Lymphocytes 2.6 % (21.0-51.0); %Monocytes 3.3 % (0.0-10.0); %Neutrophils 93.1 % (42.0-75.0); Hemoglobin 14.7 g/dL (14.0-18.0); Mean Corpuscular Hemoglobin 33.7 pg (27.0-31.0); Mean Corpuscular Volume 99.1 fL (78.0-98.0); Mean Platelet Volume 8.9 fL (7.4-10.4); Platelet Count 113 thou/uL (130-400); RBC Distribution Width 12.4 % (11.5-14.5); Red Blood Cell (RBC) Count 4.35 mill/uL (4.70-6.10); White Blood Cell (WBC) Count 19.5 thou/uL (4.8-10.8)
[2021-10-18 04:19] LABS: Anion Gap 10 mmol/L (10-20); BUN (Urea Nitrogen) 54 mg/dL (8.4-25.7); Calc. Creatinine Clearance 72 mL/min (70-130); Calcium 8.9 mg/dL (7.8-10.44); Carbon Dioxide 31 mmol/L (23-31); Chloride 99 mmol/L (98-107); Glucose 192 mg/dL (83-110); Potassium 4.5 mmol/L (3.5-5.1); Sodium 135 mmol/L (136-145)
[2021-10-18] MEDS: HumaLOG 300 UNITS/3 ML VIAL SC PRN ×2 (06:23→12:05)
[2021-10-18] MEDS: Levothyroxine 150 MCG TAB PO SCH (06:41)
[2021-10-18] MEDS: Enoxaparin Sodium 40 MG/0.4 ML SYRINGE SC SCH (07:54)
[2021-10-18] MEDS: Cholecalciferol 1,000 UNITS (25 MCG) TAB PO SCH (07:55)
[2021-10-18] MEDS: guaiFENesin ER 600 MG TAB PO SCH ×2 (07:55→20:45)
[2021-10-18] MEDS: Amlodipine 10 MG TAB PO SCH (07:55)
[2021-10-18] MEDS: Ascorbic Acid 500 mg Chewable Tablet PO SCH ×2 (07:55→20:44)
[2021-10-18] MEDS: Aspirin Chewable 81 MG TAB PO SCH (07:55)
[2021-10-18] MEDS: methylPREDNISolone Sod Succ/PF 125 MG/2 ML VIAL IVP SCH ×2 (07:55→20:45)
[2021-10-18] MEDS: Potassium Chloride 20 MEQ TAB PO SCH (07:56)
[2021-10-18] MEDS: Carvedilol 3.125 MG TAB PO SCH ×2 (07:56→18:09)
[2021-10-18] MEDS: Famotidine 20 MG TAB PO SCH ×2 (07:56→20:45)
[2021-10-18] MEDS: Loratadine 10 MG TAB PO SCH (07:56)
[2021-10-18] MEDS: Spironolactone 25 MG TAB PO SCH (07:56)
[2021-10-18] MEDS: Fluticasone Propionate Nasal Spray 16 gm Bottle NASAL SCH (07:56)
[2021-10-18] MEDS: Lisinopril 10 MG TAB PO SCH (07:56)
[2021-10-18] MEDS: metFORMIN XR 500 MG TAB PO SCH (07:56)
[2021-10-18] MEDS: Lantus 1000 UNITS/10 ML VIAL SC SCH (07:57)
[2021-10-18] MEDS: Metamucil PACK PO SCH (07:58)
[2021-10-18] MEDS: Atorvastatin Calcium 40 MG TAB PO SCH (20:45)
[2021-10-18] MEDS: Terazosin HCl 5 MG CAP PO SCH (20:45)
[2021-10-18] MEDS: Aluminum & Magnesium Hydroxide 60 ML, Lidocaine 2% Viscous Solution 30 ML, diphenhydrAM... SSW PRN (21:15)
[2021-10-19 03:56] LABS: Hemoglobin 14.7 g/dL (14.0-18.0); Mean Corpuscular HGB CONC 32.8 g/dL (32.0-36.0); Mean Corpuscular Hemoglobin 32.7 pg (27.0-31.0); Mean Corpuscular Volume 99.5 fL (78.0-98.0); Mean Platelet Volume 8.9 fL (7.4-10.4); Platelet Count 100 thou/uL (130-400); RBC Distribution Width 12.5 % (11.5-14.5); White Blood Cell (WBC) Count 20.2 thou/uL (4.8-10.8)
[2021-10-19 04:07] LABS: Anion Gap 12 mmol/L (10-20); BUN (Urea Nitrogen) 49 mg/dL (8.4-25.7); Calc. Creatinine Clearance 80 mL/min (70-130); Calcium 8.8 mg/dL (7.8-10.44); Carbon Dioxide 26 mmol/L (23-31); Chloride 101 mmol/L (98-107); Glucose 182 mg/dL (83-110); Potassium 4.8 mmol/L (3.5-5.1); Sodium 134 mmol/L (136-145)
[2021-10-19 04:31] LABS: Lymphocytes 1 % (21-51); MDiff Complete? YES; Monocytes 2 % (0-10); Neutrophil 97 % (42-75); Platelet Morphology Comment Appears Decreased
[2021-10-19] MEDS: Levothyroxine 150 MCG TAB PO SCH (05:45)
[2021-10-19] MEDS ORDERED: Morphine 4 MG/ML VIAL SLOW IVP PRN (08:39)
[2021-10-19] MEDS: Loratadine 10 MG TAB PO SCH (09:47)
[2021-10-19] MEDS: Aspirin Chewable 81 MG TAB PO SCH (09:47)
[2021-10-19] MEDS: Spironolactone 25 MG TAB PO SCH (09:47)
[2021-10-19] MEDS: Potassium Chloride 20 MEQ TAB PO SCH (09:48)
[2021-10-19] MEDS: guaiFENesin ER 600 MG TAB PO SCH ×2 (09:48→21:32)
[2021-10-19] MEDS: Cholecalciferol 1,000 UNITS (25 MCG) TAB PO SCH (09:48)
[2021-10-19] MEDS: Lisinopril 10 MG TAB PO SCH (09:48)
[2021-10-19] MEDS: Carvedilol 3.125 MG TAB PO SCH ×2 (09:48→17:23)
[2021-10-19] MEDS: methylPREDNISolone Sod Succ/PF 125 MG/2 ML VIAL IVP SCH ×2 (09:49→21:32)
[2021-10-19] MEDS: Ascorbic Acid 500 mg Chewable Tablet PO SCH ×2 (09:49→21:32)
[2021-10-19] MEDS: metFORMIN XR 500 MG TAB PO SCH (09:49)
[2021-10-19] MEDS: Famotidine 20 MG TAB PO SCH ×2 (09:49→21:31)
[2021-10-19] MEDS: Lantus 1000 UNITS/10 ML VIAL SC SCH (09:49)
[2021-10-19] MEDS: Fluticasone Propionate Nasal Spray 16 gm Bottle NASAL SCH (09:50)
[2021-10-19] MEDS: Metamucil PACK PO SCH (09:50)
[2021-10-19] MEDS: Amlodipine 5 MG TAB PO SCH (09:50)
[2021-10-19] MEDS: Enoxaparin Sodium 40 MG/0.4 ML SYRINGE SC SCH (12:04)
[2021-10-19] MEDS: Acetaminophen 325 MG TAB PO PRN (14:55)
[2021-10-19] MEDS: HumaLOG 300 UNITS/3 ML VIAL SC PRN (17:23)
[2021-10-19] MEDS: Amlodipine 10 MG TAB PO SCH (17:47)
[2021-10-19] MEDS: Terazosin HCl 5 MG CAP PO SCH (21:31)
[2021-10-19] MEDS: Atorvastatin Calcium 40 MG TAB PO SCH (21:32)
[2021-10-20 04:18] LABS: #Eosinphils 0.1 thou/uL (0.0-0.7); #Lymphocytes 0.9 thou/uL (1.20-3.40); #Monocytes 1.1 thou/uL (0.11-0.59); #Neutrophils 19.1 thou/uL (1.40-6.50); %Eosinophils 0.3 % (0.0-10.0); %Lymphocytes 4.2 % (21.0-51.0); %Monocytes 5.1 % (0.0-10.0); %Neutrophils 90.4 % (42.0-75.0); Hemoglobin 14.2 g/dL (14.0-18.0); Mean Corpuscular HGB CONC 33.6 g/dL (32.0-36.0); Mean Corpuscular Hemoglobin 33.7 pg (27.0-31.0); Mean Platelet Volume 8.9 fL (7.4-10.4); Platelet Count 95 thou/uL (130-400); RBC Distribution Width 12.6 % (11.5-14.5); White Blood Cell (WBC) Count 21.1 thou/uL (4.8-10.8)
[2021-10-20 04:40] LABS: Anion Gap 12 mmol/L (10-20); BUN (Urea Nitrogen) 62 mg/dL (8.4-25.7); Calc. Creatinine Clearance 77 mL/min (70-130); Calcium 8.6 mg/dL (7.8-10.44); Carbon Dioxide 25 mmol/L (23-31); Chloride 102 mmol/L (98-107); Glucose 206 mg/dL (83-110); Potassium 4.9 mmol/L (3.5-5.1); Sodium 134 mmol/L (136-145)
[2021-10-20] MEDS: Levothyroxine 150 MCG TAB PO SCH (06:13)
[2021-10-20] MEDS: HumaLOG 300 UNITS/3 ML VIAL SC PRN ×2 (06:16→16:36)
[2021-10-20] MEDS: Lisinopril 10 MG TAB PO SCH (08:58)
[2021-10-20] MEDS: Cholecalciferol 1,000 UNITS (25 MCG) TAB PO SCH (08:58)
[2021-10-20] MEDS: Carvedilol 3.125 MG TAB PO SCH ×2 (08:59→16:36)
[2021-10-20] MEDS: Famotidine 20 MG TAB PO SCH ×2 (08:59→21:36)
[2021-10-20] MEDS: Ascorbic Acid 500 mg Chewable Tablet PO SCH ×2 (08:59→21:36)
[2021-10-20] MEDS: Aspirin Chewable 81 MG TAB PO SCH (08:59)
[2021-10-20] MEDS: Amlodipine 5 MG TAB PO SCH (08:59)
[2021-10-20] MEDS: Loratadine 10 MG TAB PO SCH (08:59)
[2021-10-20] MEDS: Metamucil PACK PO SCH (08:59)
[2021-10-20] MEDS: Spironolactone 25 MG TAB PO SCH (08:59)
[2021-10-20] MEDS: Potassium Chloride 20 MEQ TAB PO SCH (08:59)
[2021-10-20] MEDS: metFORMIN XR 500 MG TAB PO SCH (08:59)
[2021-10-20] MEDS: guaiFENesin ER 600 MG TAB PO SCH ×2 (08:59→21:36)
[2021-10-20] MEDS: Enoxaparin Sodium 40 MG/0.4 ML SYRINGE SC SCH (09:00)
[2021-10-20] MEDS: Fluticasone Propionate Nasal Spray 16 gm Bottle NASAL SCH (09:00)
[2021-10-20] MEDS: methylPREDNISolone Sod Succ/PF 125 MG/2 ML VIAL IVP SCH ×2 (09:00→21:31)
[2021-10-20] MEDS: Lantus 1000 UNITS/10 ML VIAL SC SCH (09:04)
[2021-10-20] MEDS: Aluminum & Magnesium Hydroxide 60 ML, Lidocaine 2% Viscous Solution 30 ML, diphenhydrAM... SSW PRN (16:36)
[2021-10-20] MEDS: Terazosin HCl 5 MG CAP PO SCH (21:36)
[2021-10-20] MEDS: Atorvastatin Calcium 40 MG TAB PO SCH (21:36)
[2021-10-21 04:28] LABS: #Eosinphils 0.1 thou/uL (0.0-0.7); #Lymphocytes 0.5 thou/uL (1.20-3.40); #Monocytes 0.5 thou/uL (0.11-0.59); %Eosinophils 0.3 % (0.0-10.0); %Lymphocytes 2.5 % (21.0-51.0); %Monocytes 2.4 % (0.0-10.0); %Neutrophils 94.9 % (42.0-75.0); Hemoglobin 14.7 g/dL (14.0-18.0); Mean Corpuscular HGB CONC 33.1 g/dL (32.0-36.0); Mean Corpuscular Hemoglobin 33.2 pg (27.0-31.0); Mean Platelet Volume 9.4 fL (7.4-10.4); Platelet Count 81 thou/uL (130-400); RBC Distribution Width 12.9 % (11.5-14.5); Red Blood Cell (RBC) Count 4.43 mill/uL (4.70-6.10); White Blood Cell (WBC) Count 21.1 thou/uL (4.8-10.8)
[2021-10-21 04:43] LABS: Anion Gap 9 mmol/L (10-20); BUN (Urea Nitrogen) 79 mg/dL (8.4-25.7); Calc. Creatinine Clearance 73 mL/min (70-130); Carbon Dioxide 28 mmol/L (23-31); Chloride 103 mmol/L (98-107); Glucose 160 mg/dL (83-110); Potassium 5.1 mmol/L (3.5-5.1); Sodium 135 mmol/L (136-145)
[2021-10-21] MEDS: Levothyroxine 150 MCG TAB PO SCH (06:12)
[2021-10-21] MEDS: Carvedilol 3.125 MG TAB PO SCH ×2 (08:45→16:59)
[2021-10-21] MEDS: Loratadine 10 MG TAB PO SCH (08:45)
[2021-10-21] MEDS: Cholecalciferol 1,000 UNITS (25 MCG) TAB PO SCH (08:45)
[2021-10-21] MEDS: Potassium Chloride 20 MEQ TAB PO SCH (08:45)
[2021-10-21] MEDS: Aspirin Chewable 81 MG TAB PO SCH (08:45)
[2021-10-21] MEDS: metFORMIN XR 500 MG TAB PO SCH (08:46)
[2021-10-21] MEDS: guaiFENesin ER 600 MG TAB PO SCH ×2 (08:46→21:27)
[2021-10-21] MEDS: Ascorbic Acid 500 mg Chewable Tablet PO SCH ×2 (08:46→21:27)
[2021-10-21] MEDS: Amlodipine 5 MG TAB PO SCH (08:46)
[2021-10-21] MEDS: Enoxaparin Sodium 40 MG/0.4 ML SYRINGE SC SCH (08:46)
[2021-10-21] MEDS: Spironolactone 25 MG TAB PO SCH (08:46)
[2021-10-21] MEDS: Metamucil PACK PO SCH (08:46)
[2021-10-21] MEDS: Famotidine 20 MG TAB PO SCH ×2 (08:46→21:28)
[2021-10-21] MEDS: Lisinopril 10 MG TAB PO SCH (08:46)
[2021-10-21] MEDS: methylPREDNISolone Sod Succ/PF 125 MG/2 ML VIAL IVP SCH ×2 (08:47→21:30)
[2021-10-21] MEDS: Fluticasone Propionate Nasal Spray 16 gm Bottle NASAL SCH (08:47)
[2021-10-21] MEDS: Lantus 1000 UNITS/10 ML VIAL SC SCH (08:50)
[2021-10-21] MEDS: HumaLOG 300 UNITS/3 ML VIAL SC PRN (12:01)
[2021-10-21 14:24] LABS: INR-International Normal Ratio 1.1; PTT 25.8 sec (22.9-36.1)
[2021-10-21 14:32] LABS: ALT (SGPT) 51 U/L (8-55); AST (SGOT) 29 U/L (5-34); Albumin 2.3 g/dL (3.4-4.8); Alkaline Phosphatase 144 U/L (40-110); Bilirubin, Direct 0.4 mg/dL (0.1-0.3); Bilirubin, Total 0.8 mg/dL (0.2-1.2); Protein, Total 5.3 g/dL (5.8-8.1)
[2021-10-21 16:29] LABS: SARS-CoV-2 PCR by NAA Not Detected (NotDetected)
[2021-10-21] MEDS: Atorvastatin Calcium 40 MG TAB PO SCH (21:28)
[2021-10-21] MEDS: Terazosin HCl 5 MG CAP PO SCH (21:30)
[2021-10-21] MEDS: Acetaminophen 325 MG TAB PO PRN (22:17)
[2021-10-22 03:59] LABS: #Lymphocytes 0.5 thou/uL (1.20-3.40); #Monocytes 0.4 thou/uL (0.11-0.59); #Neutrophils 20.8 thou/uL (1.40-6.50); %Basophils 0.1 % (0.0-1.0); %Eosinophils 0.2 % (0.0-10.0); %Lymphocytes 2.2 % (21.0-51.0); %Monocytes 1.7 % (0.0-10.0); %Neutrophils 95.8 % (42.0-75.0); Hemoglobin 14.4 g/dL (14.0-18.0); Mean Corpuscular Hemoglobin 34.1 pg (27.0-31.0); Platelet Count 68 thou/uL (130-400); RBC Distribution Width 12.9 % (11.5-14.5); Red Blood Cell (RBC) Count 4.23 mill/uL (4.70-6.10); White Blood Cell (WBC) Count 21.8 thou/uL (4.8-10.8)
[2021-10-22 04:15] LABS: ALT (SGPT) 60 U/L (8-55); AST (SGOT) 34 U/L (5-34); Albumin 2.2 g/dL (3.4-4.8); Alkaline Phosphatase 140 U/L (40-110); Anion Gap 11 mmol/L (10-20); BUN (Urea Nitrogen) 91 mg/dL (8.4-25.7); Bilirubin, Total 0.9 mg/dL (0.2-1.2); Calc. Creatinine Clearance 61 mL/min (70-130); Calcium 8.9 mg/dL (7.8-10.44); Carbon Dioxide 27 mmol/L (23-31); Chloride 102 mmol/L (98-107); Globulin 2.9 g/dL (2.4-3.5); Glucose 187 mg/dL (83-110); Potassium 5.4 mmol/L (3.5-5.1); Protein, Total 5.1 g/dL (5.8-8.1); Sodium 135 mmol/L (136-145)
[2021-10-22] MEDS: Levothyroxine 150 MCG TAB PO SCH (05:45)
[2021-10-22] MEDS: HumaLOG 300 UNITS/3 ML VIAL SC PRN ×2 (06:40→18:00)
[2021-10-22] MEDS: metFORMIN XR 500 MG TAB PO SCH (09:36)
[2021-10-22] MEDS: Famotidine 20 MG TAB PO SCH (09:39)
[2021-10-22] MEDS: Cholecalciferol 1,000 UNITS (25 MCG) TAB PO SCH (09:39)
[2021-10-22] MEDS: Loratadine 10 MG TAB PO SCH (09:39)
[2021-10-22] MEDS: Aspirin Chewable 81 MG TAB PO SCH (09:41)
[2021-10-22] MEDS: Spironolactone 25 MG TAB PO SCH (09:42)
[2021-10-22] MEDS: guaiFENesin ER 600 MG TAB PO SCH ×2 (09:42→20:46)
[2021-10-22] MEDS: Ascorbic Acid 500 mg Chewable Tablet PO SCH ×2 (09:42→20:47)
[2021-10-22] MEDS: methylPREDNISolone Sod Succ/PF 125 MG/2 ML VIAL IVP SCH ×2 (09:43→20:48)
[2021-10-22] MEDS: Metamucil PACK PO SCH (09:43)
[2021-10-22] MEDS: Lisinopril 10 MG TAB PO SCH (09:44)
[2021-10-22] MEDS: Amlodipine 5 MG TAB PO SCH (09:45)
[2021-10-22] MEDS: Carvedilol 3.125 MG TAB PO SCH ×2 (09:45→17:58)
[2021-10-22] MEDS: Lantus 1000 UNITS/10 ML VIAL SC SCH (09:46)
[2021-10-22] MEDS: Fluticasone Propionate Nasal Spray 16 gm Bottle NASAL SCH (09:48)
[2021-10-22 09:50] VITALS: BP 111/61
[2021-10-22] MEDS ORDERED: Lactated Ringer's 1,000 ML IV SCH (14:30)
[2021-10-22] MEDS: Atorvastatin Calcium 40 MG TAB PO SCH (20:47)
[2021-10-22] MEDS: Terazosin HCl 5 MG CAP PO SCH (20:55)
[2021-10-22] MEDS: Acetaminophen 325 MG TAB PO PRN (20:58)
[2021-10-23] MEDS ORDERED: diphenhydrAMINE 50 MG/ML VIAL IVP SCH (00:15)
[2021-10-23] MEDS ORDERED: Morphine 4 MG/ML VIAL SLOW IVP SCH (00:30)
[2021-10-23 04:19] VITALS: TEMP 96.9
[2021-10-23] MEDS: Levothyroxine 150 MCG TAB PO SCH (05:53)
[2021-10-23] MEDS ORDERED: Hyoscyamine Sulfate 0.125 MG/5 ML UDCUP PO PRN (08:28)
[2021-10-23] MEDS: Lantus 1000 UNITS/10 ML VIAL SC SCH (08:38)
[2021-10-23] MEDS: guaiFENesin ER 600 MG TAB PO SCH (08:38)
[2021-10-23] MEDS: Metamucil PACK PO SCH (08:39)
[2021-10-23] MEDS ORDERED: Morphine 4 MG/ML VIAL SLOW IVP PRN (08:47)
[2021-10-23] MEDS: Spironolactone 25 MG TAB PO SCH (08:54)
[2021-10-23] MEDS: metFORMIN XR 500 MG TAB PO SCH (08:54)
[2021-10-23] MEDS: Carvedilol 3.125 MG TAB PO SCH (08:54)
[2021-10-23] MEDS: methylPREDNISolone Sod Succ/PF 125 MG/2 ML VIAL IVP SCH (09:08)
[2021-10-23 10:48] LABS: Hemoglobin 13.3 g/dL (14.0-18.0); Mean Corpuscular HGB CONC 32.2 g/dL (32.0-36.0); Mean Corpuscular Hemoglobin 33.7 pg (27.0-31.0); Mean Platelet Volume 9.5 fL (7.4-10.4); Platelet Count 89 thou/uL (130-400); Red Blood Cell (RBC) Count 3.96 mill/uL (4.70-6.10); White Blood Cell (WBC) Count 25.3 thou/uL (4.8-10.8)
[2021-10-23 11:03] LABS: Anion Gap 14 mmol/L (10-20); Calc. Creatinine Clearance 35 mL/min (70-130); Calcium 8.9 mg/dL (7.8-10.44); Carbon Dioxide 25 mmol/L (23-31); Chloride 103 mmol/L (98-107); Glucose 181 mg/dL (83-110); Potassium 6.9 mmol/L (3.5-5.1); Sodium 135 mmol/L (136-145)
[2021-10-23 11:18] LABS: BUN (Urea Nitrogen) 118 mg/dL (8.4-25.7)
[2021-10-23 11:20] LABS: MDiff Complete? YES
[2021-10-23 11:21] LABS: Band 1 % (5-11); Monocytes 1 % (0-10); Neutrophil 98 % (42-75); Platelet Morphology Comment Appears Decreased
== END 2021-10-23 15:45 | disposition expired | DRG 871 ==
LOC: ERS 03:12 → IMCU/EMU 04:56
PROVIDERS: ADMIT Emergency Medicine; ATTEND Emergency Medicine
PROC: 5A09357 Assistance with Respiratory Ventilation, Less than 24 Consecutive Hours, Continuous Positive Airway Pressure (ICD-10-PCS; principal; 2021-10-05)
PROC: 5A09557 Assistance with Respiratory Ventilation, Greater than 96 Consecutive Hours, Continuous Positive Airway Pressure (ICD-10-PCS; 2021-10-07)
DX: A41.9 Sepsis, unspecified organism (principal); J96.01 Acute respiratory failure with hypoxia; I50.33 Acute on chronic diastolic (congestive) heart failure; C79.51 Secondary malignant neoplasm of bone; N17.9 Acute kidney failure, unspecified; Z66 Do not resuscitate; Z51.5 Encounter for palliative care; Z20.822 Contact with and (suspected) exposure to COVID-19; J43.9 Emphysema, unspecified; J70.3 Chronic drug-induced interstitial lung disorders; I48.91 Unspecified atrial fibrillation; I11.0 Hypertensive heart disease with heart failure; I25.10 Atherosclerotic heart disease of native coronary artery without angina pectoris; E03.9 Hypothyroidism, unspecified; B18.2 Chronic viral hepatitis C; M19.90 Unspecified osteoarthritis, unspecified site; K74.60 Unspecified cirrhosis of liver; E66.9 Obesity, unspecified; C61 Malignant neoplasm of prostate; E11.65 Type 2 diabetes mellitus with hyperglycemia; T38.0X5A Adverse effect of glucocorticoids and synthetic analogues, initial encounter; Z77.090 Contact with and (suspected) exposure to asbestos; R59.0 Localized enlarged lymph nodes; I25.5 Ischemic cardiomyopathy; J61 Pneumoconiosis due to asbestos and other mineral fibers; T46.2X5A Adverse effect of other antidysrhythmic drugs, initial encounter; E87.6 Hypokalemia; Z53.29 Procedure and treatment not carried out because of patient's decision for other reasons; I25.2 Old myocardial infarction; Z88.8 Allergy status to other drugs, medicaments and biological substances; Z79.890 Hormone replacement therapy; Z79.51 Long term (current) use of inhaled steroids; Z79.82 Long term (current) use of aspirin; Z79.899 Other long term (current) drug therapy; Z90.49 Acquired absence of other specified parts of digestive tract; Z95.5 Presence of coronary angioplasty implant and graft; Z90.09 Acquired absence of other part of head and neck; Z87.891 Personal history of nicotine dependence; Z68.29 Body mass index [BMI] 29.0-29.9, adult; D69.6 Thrombocytopenia, unspecified; E87.5 Hyperkalemia; R00.1 Bradycardia, unspecified; Z78.1 Physical restraint status
CPT/HCPCS: 0240U; 36415; 36416; 71045; 71260; 80048; 80053; 80076; 82306; 82607; 82746; 83036; 83880; 84145; 84153; 84154; 85025; 85610; 85730; 86140; 86480; 86780; 87389; 87449; 93005; 93306; 94640; 94660; J0456; J0696; J1650; J1815; J1940; J2185; J2270; J2920; J2930; J3490; J7050; J7120; J7512; J7620; Q0163; Q9967; U0003; U0005